=== PATIENT | female | born 1935 | race Caucasian/White ===

== ENCOUNTER 2016-10-15 12:42 | Emergency (ER) | payer MEDICARE, OTHER ==
[2016-10-15 12:47] VITALS: BMI 244.3
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
[2016-10-15 15:50] LABS: URINE APPEARANCE CLEAR; URINE BILIRUBIN NEGATIVE (NEGATIVE); URINE BLOOD NEGATIVE (NEGATIVE); URINE COLOR STRAW; URINE GLUCOSE (UA) NEGATIVE (NEGATIVE); URINE KETONE NEGATIVE (NEGATIVE); URINE LEUK ESTERASE NEGATIVE (NEGATIVE); URINE NITRITE NEGATIVE (NEGATIVE); URINE UROBILINOGEN NEGATIVE E.U./dl (0.2-1.0)
[2016-10-15 15:53] LABS: URINE PROTEIN 2+ (NEGATIVE)
[2016-10-15 16:36] LABS: URINE RBC <1 /hpf (0-3); URINE WBC <1 /hpf (3-5)
[2016-10-15 16:46] LABS: BASOPHIL 0.3 % (0-2.0); EOSINOPHIL 0.1 % (0-4.5); MCH 29.9 pg (25.7-33.7); MCHC 32.3 g/dl (32.0-36.0); MEAN CELL VOLUME 92.4 fl (80-96); MEAN PLT VOLUME 10.9 fl (7.5-11.1); NEUTROPHILS 90.2 % (42.8-82.8); PLATELET COUNT 163 K/MM3 (134-434); WHITE BLOOD COUNT 12.1 K/mm3 (4.0-10.0)
[2016-10-15 17:18] LABS: ALBUMIN 3.8 g/dl (3.4-5.0); ANION GAP 14 (8-16); BILIRUBIN,TOTAL 0.4 mg/dL (0.2-1.0); CALCIUM 8.8 mg/dL (8.5-10.1); CO2 23 mmol/L (21-32); CREATININE 0.9 mg/dL (0.55-1.02); GLUCOSE,RANDOM 183 mg/dL (74-106); SGOT/AST 18 U/L (15-37); SGPT/ALT 38 U/L (12-78); TOT PROT 7.7 g/dl (6.4-8.2)
[2016-10-15 17:20] LABS: ALK PHOS 83 U/L (45-117); TROPONIN I < 0.02 ng/ml (0.00-0.05)
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
[2016-10-15 19:23] VITALS: BP 163/74; PULSE 56; TEMP 98.2
--- NOTE | 2016-10-16 12:19 | EKG ---
Test Reason : Blood Pressure : / mmHG Vent. Rate : 065 BPM Atrial Rate : 065 BPM P-R Int : 144 ms QRS Dur : 094 ms QT Int : 434 ms P-R-T Axes : 037 -09 047 degrees QTc Int : 451 ms NORMAL SINUS RHYTHM WITH SINUS ARRHYTHMIA LEFT ATRIAL ENLARGEMENT INCOMPLETE RIGHT BUNDLE BRANCH BLOCK NONSPECIFIC ST ABNORMALITY ABNORMAL ECG WHEN COMPARED WITH ECG OF 08-NOV-2014 19:31, NO SIGNIFICANT CHANGE WAS FOUND Confirmed by SHAUN DEL CID MD ([id number]) on 10/16/2016 12:19:31 PM Referred By: Confirmed By:SHAUN DEL CID MD
--- NOTE | 2016-10-19 12:18 | EKG ---
Test Reason : Blood Pressure : / mmHG Vent. Rate : 065 BPM Atrial Rate : 065 BPM P-R Int : 144 ms QRS Dur : 092 ms QT Int : 436 ms P-R-T Axes : 038 -17 038 degrees QTc Int : 453 ms NORMAL SINUS RHYTHM POSSIBLE LEFT ATRIAL ENLARGEMENT INCOMPLETE RIGHT BUNDLE BRANCH BLOCK NONSPECIFIC ST ABNORMALITY ABNORMAL ECG WHEN COMPARED WITH ECG OF 08-NOV-2014 19:31, NO SIGNIFICANT CHANGE WAS FOUND Confirmed by MD KENNETH, TEVIN ([id number]) on 10/19/2016 12:17:55 PM Referred By: Confirmed By:TEVIN COOPER MD
== END 2016-10-15 18:35 | disposition home or self-care (01) ==
LOC: JERFT 12:42 → JER 12:42
DX: Z04.1 Encounter for examination and observation following transport accident (principal); V43.52XA Car driver injured in collision with other type car in traffic accident, initial encounter; Y93.89 Activity, other specified; Y92.410 Unspecified street and highway as the place of occurrence of the external cause; I10 Essential (primary) hypertension; J44.9 Chronic obstructive pulmonary disease, unspecified; J45.909 Unspecified asthma, uncomplicated; E78.00 Pure hypercholesterolemia, unspecified; Z87.891 Personal history of nicotine dependence
CPT/HCPCS: 36415; 70450-TC; 71020-TC; 80053; 81003; 81015; 82550; 84484; 85025; 93005; 93010; 99282-25

== ENCOUNTER 2016-11-27 14:18 | Inpatient (IN) | payer OTHER ==
--- NOTE | 2016-11-27 14:40 | PDOC ---
History of Present Illness - General History Source: Patient Exam Limitations: No Limitations - History of Present Illness Initial Comments: 11/27/16 14:52 The patient is an 81-year-old woman, accompanied by her daughter, with a significant past medical history of hypertension, hyperchoelsterolemia, mitral valve replacement, double bypass, asthma, chronic obstructive pulmonary disease and colonic polyps who was sent to the emergency department by her dentist for further evaluation of an elevated blood pressure. Upon ED arrival, the patient was noted to have a blood pressure of 205/74, bradycardic to 48 bpm, and an oxygen saturation of 94% on room air. As per patient, she reports she was not feeling like her usual self, last night, as she felt drowsy while watching television. She ultimately fell asleep and this morning, she felt somewhat of an unsteady gait, however she went to her routine checkup with her dentist. She reports she had to wait approximately 1 hour and 30 minutes, felt frustrated and her blood pressure was measured and she reports it was high. she reports compliance with all of her anti-hypertensive medications this morning. She currently denies chest pain, lightheadedness, dizziness, visual changes, neck pain,back pain, leg pain/swelling, abdominal pain, nausea, vomiting, diarrhea, cough, shortness of breath. Allergies: Penicillin Past Surgical History: Mitral valve replacement. Double bypass. Appendectomy. Right shoulder arthroscopic surgery. Social History: Former smoker. No EtOH and recreational drug use. Primary Care Physician: Dr. Carmine Soriano. (now retired; Dr. Dorota Bourne) <Judy William - Last Filed: 11/27/16 18:11> <Demetrio Mcclain - Last Filed: 11/27/16 18:40> - General Chief Complaint: Chest Pain Stated Complaint: CHEST PAIN Time Seen by Provider: 11/27/16 14:39 Past History <Judy William - Last Filed: 11/27/16 18:11> - Past Medical History Anemia: No Asthma: Yes Cancer: No Cardiac Disorders: No CVA: No COPD: Yes (COPD) CHF: No Dementia: No Diabetes: No GI Disorders: Yes (COLONIC POLYPS) Disorders: No HTN: Yes Hypercholesterolemia: Yes Liver Disease: No Seizures: No Thyroid Disease: No - Surgical History Abdominal Surgery: Yes Appendectomy: Yes Cardiac Surgery: Yes (August,) Cholecystectomy: No Lung Surgery: No Neurologic Surgery: No Orthopedic Surgery: Yes (RIGHT SHOULDER ARTHROSCOPIC SURGERY) - Psycho/Social/Smoking Cessation Hx Anxiety: No Suicidal Ideation: No Smoking History: Former smoker Have you smoked in the past 12 months: No Number of Cigarettes Smoked Daily: 0 If you are a former smoker, when did you quit?: 30 YEARS Hx Alcohol Use: No Drug/Substance Use Hx: No Substance Use Type: Alcohol Hx Substance Use Treatment: No <Demetrio Mcclain - Last Filed: 11/27/16 18:40> - Past Medical History Allergies/Adverse Reactions: Allergies Allergy/AdvReac Type Severity Reaction Status Date / Time Penicillins Allergy Mild Rash Verified 11/27/16 14:27 Home Medications: Ambulatory Orders Atorvastatin Ca [Lipitor] 20 mg PO DAILY 11/27/16 Furosemide 40 mg PO DAILY 11/27/16 Isosorbide Mononitrate [Isosorbide Mononitrate ER] 30 mg PO DAILY 11/27/16 Metoprolol Succinate [Toprol Xl] 100 mg PO DAILY 11/27/16 Montelukast Na [Singulair -] 10 mg PO HS 11/27/16 Nifedipine ER [Procardia Xl -] 30 mg PO DAILY 11/27/16 Olmesartan Medoxomil [Benicar (Nf)] 20 mg PO DAILY 11/27/16 Review of Systems - Review of Systems Able to Perform ROS?: Yes Comments:: 11/27/16 15:08 GENERAL/CONSTITUTIONAL: No fever or chills. No weakness. HEAD, EYES, EARS, NOSE AND THROAT: No change in vision. No ear pain or discharge. No sore throat. CARDIOVASCULAR: Yes: Elevated Blood Pressure. No chest pain or shortness of breath. RESPIRATORY: No cough, wheezing, or hemoptysis. GASTROINTESTINAL: No nausea, vomiting, diarrhea or constipation. GENITOURINARY: No dysuria, frequency, or change in urination. MUSCULOSKELETAL: No joint or muscle swelling or pain. No neck or back pain. SKIN: No rash NEUROLOGIC: Yes: Unsteady gait. No headache, vertigo, loss of consciousness, or change in strength/sensation. ENDOCRINE: No increased thirst. No abnormal weight change. HEMATOLOGIC/LYMPHATIC: No anemia, easy bleeding, or history of blood clots. ALLERGIC/IMMUNOLOGIC: No hives or skin allergie <Judy William - Last Filed: 11/27/16 18:11> *Physical Exam - Physical Exam Comments: 11/27/16 15:08 GENERAL: Awake, alert, and fully oriented, in no acute distress HEAD: No signs of trauma EYES: PERRLA, EOMI, sclera anicteric, conjunctiva clear ENT: Auricles normal inspection, hearing grossly normal, nares patent, oropharynx clear without exudates. Moist mucosa NECK: Normal ROM, supple, no lymphadenopathy, JVD, or masses LUNGS: Breath sounds equal, clear to auscultation bilaterally. No wheezes, and no crackles HEART: Regular rate and rhythm, normal S1 and S2, no murmurs, rubs or gallops ABDOMEN: Soft, nontender, normoactive bowel sounds. No guarding, no rebound. No masses EXTREMITIES: Normal range of motion, no edema. No clubbing or cyanosis. No cords, erythema, or tenderness NEUROLOGICAL: Cranial nerves II through XII grossly intact. Normal speech, normal gait. <Judy William - Last Filed: 11/27/16 18:11> Heart Score/ECG Review #1 11/27/16 14:34 Reviewed and interpreted by Dr. Demetrio Mcclain IMPRESSION: Sinus bradycardia with sinus arrhythmia. Possible left atrial enlargement. <WilliamJudy - Last Filed: 11/27/16 18:11> ED Treatment Course - LABORATORY CBC & Chemistry Diagram: 11/27/16 15:28 11/27/16 15:28 - RADIOLOGY Radiograph Interpretation: 11/27/16 16:41 EXAM: CT/HEAD CT WITHOUT CONTRAST Interpreted by Dr. Cesario Camacho IMPRESSION: Cranial CT without contrast Clinical information: hypertensive crisis No intracranial hemorrhage is seen. There has been no definite interval change in comparison to a previous CT study of 10/15/2016. Minimal to mild periventricular chronic microvascular changes are noted. There is no extra- axial fluid collection. Equivocal visualization of a 1.3 cm meningioma is noted along the left anterior cranial fossa floor ventrally adjacent to the midline ( on coronal imaging). This possible small meningioma cannot be definitely seen on the previous exam which may be due to current artifact versus partial abnormality. No mass effect or perilesional edema is seen. Mild to moderate ventricular dilatation is noted probably due to central atrophy. Status post left mastoidectomy. <Judy William - Last Filed: 11/27/16 18:11> - LABORATORY CBC & Chemistry Diagram: 11/27/16 15:28 11/27/16 15:28 <Demetrio Mcclain - Last Filed: 11/27/16 18:40> Medical Decision Making - Medical Decision Making 11/27/16 17:33 MicroBlogged Hospitalist. Immediate response. Case was discussed. Accepts case. <Judy William - Last Filed: 11/27/16 18:11> *DC/Admit/Observation/Transfer - Attestations Scribe Attestion: 11/27/16 15:08 Documentation prepared by Judy William, acting as medical transcriptionist for Demetrio Mcclain DO. <Judy William - Last Filed: 11/27/16 18:11> - Discharge Dispostion Admit: Yes - Attestations Physician Attestion: 11/27/16 14:40 I, Dr. Demetrio Mcclain, attest that this document has been prepared under my direction and personally reviewed by me in its entirety. I further attest, that it accurately reflects all work, treatment, procedures and medical decision -making performed by me. <Demetrio Mcclain - Last Filed: 11/27/16 18:40> Diagnosis at time of Disposition: Hypertensive crisis, Symptomatic sinus bradycardia, Cerebral meningioma - Discharge Dispostion Condition at time of disposition: Improved - Referrals Referrals: Carmine Soriano MD [Non Staff, Medical] -
[2016-11-27 14:55] VITALS: BMI 29.2
[2016-11-27] MEDS ORDERED: cloNIDine HCL 0.1 MG TABLET PO ONE ×2 (14:59→16:24)
[2016-11-27] MEDS ORDERED: cloNIDine HCL 0.1 MG TABLET ONE (15:13)
[2016-11-27 15:56] LABS: EOSINOPHIL 5.1 % (0-4.5); MCH 30.1 pg (25.7-33.7); MCHC 32.9 g/dl (32.0-36.0); MEAN CELL VOLUME 91.4 fl (80-96); MEAN PLT VOLUME 10.5 fl (7.5-11.1); NEUTROPHILS 63.6 % (42.8-82.8); PLATELET COUNT 166 K/MM3 (134-434); RDW 14.5 % (11.6-15.6); WHITE BLOOD COUNT 9.7 K/mm3 (4.0-10.0)
[2016-11-27 15:58] LABS: URINE APPEARANCE CLEAR; URINE BILIRUBIN NEGATIVE (NEGATIVE); URINE BLOOD NEGATIVE (NEGATIVE); URINE COLOR COLORLESS; URINE GLUCOSE (UA) NEGATIVE (NEGATIVE); URINE KETONE NEGATIVE (NEGATIVE); URINE LEUK ESTERASE NEGATIVE (NEGATIVE); URINE NITRITE NEGATIVE (NEGATIVE); URINE PROTEIN 1+ (NEGATIVE); URINE UROBILINOGEN NEGATIVE E.U./dl (0.2-1.0)
[2016-11-27 16:26] LABS: ANION GAP 8 (8-16); BILIRUBIN,TOTAL 0.5 mg/dL (0.2-1.0); CALCIUM 8.9 mg/dL (8.5-10.1); CO2 30 mmol/L (21-32); CREATININE 0.8 mg/dL (0.55-1.02); GLUCOSE,RANDOM 102 mg/dL (74-106); SGOT/AST 21 U/L (15-37); SGPT/ALT 34 U/L (12-78); TOT PROT 7.5 g/dl (6.4-8.2)
[2016-11-27 16:28] LABS: ALK PHOS 80 U/L (45-117); TROPONIN I < 0.02 ng/ml (0.00-0.05)
[2016-11-27 16:44] LABS: URINE BACTERIA RARE /hpf (NONE SEEN); URINE WBC <1 /hpf (3-5)
[2016-11-27 17:05] LABS: INR 1.15 (0.82-1.09); PROTHROMBIN TIME (PATIENT) 12.7 SEC (9.98-11.88)
--- NOTE | 2016-11-27 17:59 | HP ---
CHIEF COMPLAINT: hypertension and bradycardia PCP: Dr. krystin vargas HISTORY OF PRESENT ILLNESS: he patient is an 81-year-old woman, accompanied by her daughter, with a significant past medical history of hypertension, hyperchoelsterolemia, mitral valve replacement, double bypass, asthma, chronic obstructive pulmonary disease and colonic polyps who was sent to the emergency department by her dentist for further evaluation of an elevated blood pressure. Upon ED arrival, the patient was noted to have a blood pressure of 205/74, bradycardic to 48 bpm, and an oxygen saturation of 94% on room air. As per patient, she reports she was not feeling like her usual self, last night, as she felt drowsy while watching television. She ultimately fell asleep and this morning, she felt somewhat of an unsteady gait, however she went to her routine checkup with her dentist. She reports she had to wait approximately 1 hour and 30 minutes, felt frustrated and her blood pressure was measured and she reports it was high. she reports compliance with all of her anti-hypertensive medications this morning. She currently denies chest pain, lightheadedness, dizziness, visual changes, neck pain,back pain, leg pain/swelling, abdominal pain, nausea, vomiting, diarrhea, cough, shortness of breath. Allergies: Penicillin Past Surgical History: Mitral valve replacement. Double bypass. Appendectomy. Right shoulder arthroscopic surgery. Social History: Former smoker. No EtOH and recreational drug use. Primary Care Physician: Dr. Carmine Soriano. (now retired; Dr. Dorota Bourne) ER course was notable for: (1) head ct with finding of menigioma? (2)treated with antihypertensives but develops symptomatic bradycardia (3) Penicillins Allergy (Mild, Verified 11/27/16 14:27) Rash HOME MEDICATIONS: Home Medications Medication Instructions Recorded Atorvastatin Ca [Lipitor] 20 mg PO DAILY 11/27/16 Furosemide 40 mg PO DAILY 11/27/16 Isosorbide Mononitrate [Isosorbide 30 mg PO DAILY 11/27/16 Mononitrate ER] Metoprolol Succinate [Toprol Xl] 100 mg PO DAILY 11/27/16 Montelukast Na [Singulair -] 10 mg PO HS 11/27/16 Nifedipine ER [Procardia Xl -] 30 mg PO DAILY 11/27/16 Olmesartan Medoxomil [Benicar (Nf)] 20 mg PO DAILY 11/27/16 REVIEW OF SYSTEMS CONSTITUTIONAL: Absent: fever, chills, diaphoresis, +generalized weakness, malaise, loss of appetite, weight change HEENT: Absent: rhinorrhea, nasal congestion, throat pain, throat swelling, difficulty swallowing, mouth swelling, ear pain, eye pain, visual changes CARDIOVASCULAR: Absent: chest pain, syncope, palpitations, irregular heart rate, lightheadedness , peripheral edema RESPIRATORY: Absent: cough, shortness of breath, dyspnea with exertion, orthopnea, wheezing, stridor, hemoptysis GASTROINTESTINAL: Absent: abdominal pain, abdominal distension, nausea, vomiting, diarrhea, constipation, melena, hematochezia GENITOURINARY: Absent: dysuria, frequency, urgency, hesitancy, hematuria, flank pain, genital pain MUSCULOSKELETAL: Absent: myalgia, arthralgia, joint swelling, back pain, neck pain SKIN: Absent: rash, itching, pallor HEMATOLOGIC/IMMUNOLOGIC: Absent: easy bleeding, easy bruising, lymphadenopathy, frequent infections ENDOCRINE: Absent: unexplained weight gain, unexplained weight loss, heat intolerance, cold intolerance NEUROLOGIC: Absent: headache, focal weakness or paresthesias, dizziness, unsteady gait, seizure, mental status changes, bladder or bowel incontinence PSYCHIATRIC: Absent: anxiety, depression, suicidal or homicidal ideation, hallucinations. PHYSICAL EXAMINATION Vital Signs - 24 hr 11/27/16 11/27/16 14:46 16:44 Temperature 98.2 F 98.1 F Pulse Rate 48 L Pulse Rate [ 48 L Right Radial] Respiratory 24 22 Rate Blood Pressure 205/74 Blood Pressure 137/83 [Right Arm] O2 Sat by Pulse 94 L 95 Oximetry (%) GENERAL: Awake, alert, and fully oriented, in no acute distress. HEAD: Normal with no signs of trauma. EYES: Pupils equal, round and reactive to light, extraocular movements intact, sclera anicteric, conjunctiva clear. No lid lag. EARS, NOSE, THROAT: Ears normal, nares patent, oropharynx clear without exudates. Moist mucous membranes. NECK: Normal range of motion, supple without lymphadenopathy, JVD, or masses. LUNGS: Breath sounds equal, clear to auscultation bilaterally. No wheezes, and no crackles. No accessory muscle use. HEART: Regular rate and rhythm, normal S1 and S2 without murmur, rub or gallop. ABDOMEN: Soft, nontender, not distended, normoactive bowel sounds, no guarding, no rebound, no masses. No hepatomegaly or splenomegaly. MUSCULOSKELETAL: Normal range of motion at all joints. No bony deformities or tenderness. No CVA tenderness. UPPER EXTREMITIES: 2+ pulses, warm, well-perfused. No cyanosis. No clubbing. No peripheral edema. LOWER EXTREMITIES: 2+ pulses, warm, well-perfused. No calf tenderness. No peripheral edema. NEUROLOGICAL: Cranial nerves II-XII intact. Normal speech. Normal gait. PSYCHIATRIC: Cooperative. Good eye contact. Appropriate mood and affect. SKIN: Warm, dry, normal turgor, no rashes or lesions noted, normal capillary refill. Laboratory Results - last 24 hr 11/27/16 11/27/16 11/27/16 15:28 15:28 15:28 WBC 9.7 RBC 4.87 Hgb 14.7 Hct 44.5 MCV 91.4 MCHC 32.9 RDW 14.5 Plt Count 166 MPV 10.5 Neutrophils % 63.6 D Lymphocytes % 20.0 D Monocytes % 10.3 H D Eosinophils % 5.1 H D Basophils % 1.0 D INR 1.15 H Sodium Potassium Chloride Carbon Dioxide Anion Gap BUN Creatinine Creat Clearance w eGFR Random Glucose Calcium Total Bilirubin AST ALT Alkaline Phosphatase Creatine Kinase Troponin I Total Protein Albumin Urine Color Colorless Urine Appearance Clear Urine pH 7.0 Urine Protein 1+ H Urine Glucose (UA) Negative Urine Ketones Negative Urine Blood Negative Urine Nitrite Negative Urine Bilirubin Negative Urine Urobilinogen Negative Ur Leukocyte Esterase Negative 11/27/16 15:28 WBC RBC Hgb Hct MCV MCHC RDW Plt Count MPV Neutrophils % Lymphocytes % Monocytes % Eosinophils % Basophils % INR Sodium 143 Potassium 4.4 Chloride 105 Carbon Dioxide 30 D Anion Gap 8 BUN 17 Creatinine 0.8 Creat Clearance w eGFR > 60 Random Glucose 102 D Calcium 8.9 Total Bilirubin 0.5 D AST 21 ALT 34 Alkaline Phosphatase 80 Creatine Kinase 105 Troponin I < 0.02 Total Protein 7.5 Albumin 4.0 Urine Color Urine Appearance Urine pH Urine Protein Urine Glucose (UA) Urine Ketones Urine Blood Urine Nitrite Urine Bilirubin Urine Urobilinogen Ur Leukocyte Esterase ASSESSMENT/PLAN: This 81 yr old female found by her dentist with a elevated blood pressure and symptomatic bradycardia was sent to ER and now admitted under telemetry. She has a finding of a menigioma on head CT -consults called for cardiology neurology neurosurgery monitor neuro and cardiac status. Problem List - Problem (1) Coronary artery disease Code(s): I25.10 - ATHSCL HEART DISEASE OF [place] CORONARY ARTERY W/O ANG PCTRS Qualifiers: Coronary Disease-Associated Artery/Lesion type: bypass graft, autologous artery Associated angina: without angina Qualified Code(s): I25.810 - Atherosclerosis of coronary artery bypass graft(s) without angina pectoris (2) Hyperlipidemia Assessment/Plan: -follow up lipid profile -continue statin Code(s): E78.5 - HYPERLIPIDEMIA, UNSPECIFIED Qualifiers: Hyperlipidemia type: pure hypercholesterolemia Qualified Code(s): E78.00 - Pure hypercholesterolemia, unspecified; E78.0 - Pure hypercholesterolemia (3) Hypertension Assessment/Plan: -consult called for cardiology -continue mediations for hypertension -monitor cardiac EKG -monitor v/s -bedrest and getting up slowly to monitor dizzy -strict i and o -hold lasix for now until seen by tete and neurology for menigioma? labs, sodium returns Code(s): I10 - ESSENTIAL (PRIMARY) HYPERTENSION Qualifiers: Hypertension type: essential hypertension Qualified Code(s): I10 - Essential (primary) hypertension (4) Junctional bradycardia Assessment/Plan: -? to hypertensive meds -get up slowly -atropine available -cardiololgy consult placed Code(s): R00.1 - BRADYCARDIA, UNSPECIFIED (5) S/P CABG (coronary artery bypass graft) Code(s): Z95.1 - PRESENCE OF AORTOCORONARY BYPASS GRAFT (6) S/P aortic valve and mitral valve replacement Code(s): Z95.2 - PRESENCE OF PROSTHETIC HEART VALVE (7) Meningioma Assessment/Plan: -consult placed to neurology and tete and will follow. -holding lasix until sodium levels -monitor neuro status Q4 for any change notifipalmira BURNETTE for head ct repeat. Code(s): D32.9 - BENIGN NEOPLASM OF MENINGES, UNSPECIFIED Visit type - Emergency Visit Emergency Visit: Yes Care time: The patient presented to the Emergency Department on the above date and was hospitalized for further evaluation of their emergent condition. - New Patient This patient is new to me today: Yes Date on this admission: 11/27/16 - Critical Care Critical Care patient: No
[2016-11-27] MEDS ORDERED: SODIUM CHLORIDE 1,000 ML IV SCH (18:00)
[2016-11-27] MEDS: ATORVASTATIN CA 20 MG TABLET (FP) PO SCH (22:33)
[2016-11-27] MEDS: INSULIN SLIDING SCALE (NOVOLOG) 1 VIAL SQ SCH (22:33)
[2016-11-27] MEDS: MONTELUKAST NA 10 MG TABLET PO SCH (22:33)
[2016-11-28] MEDS ORDERED: cloNIDine HCL 0.1 MG TABLET PO ONE (01:54)
[2016-11-28] MEDS: INSULIN SLIDING SCALE (NOVOLOG) 1 VIAL SQ SCH (06:03)
[2016-11-28 07:22] LABS: BASOPHIL 1.1 % (0-2.0); EOSINOPHIL 6.5 % (0-4.5); MCH 30.7 pg (25.7-33.7); MCHC 33.7 g/dl (32.0-36.0); MEAN CELL VOLUME 91.2 fl (80-96); MEAN PLT VOLUME 10.5 fl (7.5-11.1); NEUTROPHILS 49.4 % (42.8-82.8); PLATELET COUNT 134 K/MM3 (134-434); RDW 14.3 % (11.6-15.6); WHITE BLOOD COUNT 7.5 K/mm3 (4.0-10.0)
[2016-11-28 07:33] LABS: INR 1.17 (0.82-1.09); PROTHROMBIN TIME (PATIENT) 12.9 SEC (9.98-11.88)
--- NOTE | 2016-11-28 08:25 | PN ---
Physical Exam: SUBJECTIVE: Patient seen and examined by me at bedside. Patient continues to have bradycardia overnight but reports no symptoms. She denies any headaches, dizziness, acute vision changes, shortness of breath, chest pain, palpitations, abdominal pain. OBJECTIVE: Vital Signs Period Temp Pulse Resp BP Sys/Ziegler Pulse Ox Last 24 Hr 97.7 F-98.3 F 45-51 18-20 167-175/71-85 95-100 GENERAL: The patient is awake, alert, and fully oriented, in no acute distress. ENT: Moist mucous membranes. NECK: (+) JVD LUNGS: Breath sounds equal, clear to auscultation bilaterally, no wheezes, no crackles, no accessory muscle use. HEART: Bradycardia with regular rhythm, normal S1 and S2 without murmur, rub or gallop. ABDOMEN: Soft, nontender, nondistended, normoactive bowel sounds, no guarding. EXTREMITIES: No peripheral edema. NEUROLOGICAL: No focal deficits. Motor strength 5/5 throughout, sensory intact. Normal speech Laboratory Results - last 24 hr 11/27/16 11/28/16 11/28/16 22:32 05:37 05:56 INR 1.17 H PTT (Actin FS) 29.0 POC Glucometer 113 114 Active Medications Generic Name Dose Route Start Last Admin Trade Name Freq PRN Reason Stop Dose Admin Atorvastatin Calcium 20 mg 11/27/16 22:00 11/27/16 22:33 Lipitor - PO 20 mg HS CHYNA Administration Pantoprazole Sodium 100 mls @ 100 mls/hr 11/28/16 10:00 Protonix 40mg Ivpb (Pre-Docked) IVPB DAILY CHYNA Sodium Chloride 1,000 mls @ 100 mls/hr 11/27/16 18:00 11/27/16 22:33 Normal Saline - IV 100 mls/hr ASDIR CHYNA Administration Insulin Aspart 1 vial 11/27/16 22:00 11/28/16 06:03 Novolog Vial Sliding Scale - SQ Not Given ACHS CHYNA Protocol Isosorbide Mononitrate 30 mg 11/28/16 10:00 Imdur - PO DAILY CHYNA Metoprolol Succinate 100 mg 11/28/16 10:00 Toprol Xl - PO DAILY CHYNA Montelukast Sodium 10 mg 11/27/16 22:00 11/27/16 22:33 Singulair - PO 10 mg HS CHYNA Administration Nifedipine 30 mg 11/28/16 10:00 Procardia Xl - PO DAILY CHYNA Valsartan 160 mg 11/28/16 10:00 Diovan - PO DAILY CHYNA Head CT (11/27/16): No intracranial hemorrhage is seen. There has been no definite interval change in comparison to a previous CT study of 10/15/2016. Minimal to mild periventricular chronic microvascular changes are noted. There is no extra-axial fluid collection. Equivocal visualization of a 1.3 cm meningioma is noted along the left anterior cranial fossa floor ventrally adjacent to the midline (on coronal imaging). This possible small meningioma cannot be definitely seen on the previous exam which may be due to current artifact versus partial abnormality. No mass effect or perilesional edema is seen. Mild to moderate ventricular dilatation is noted probably due to central atrophy. Status post left mastoidectomy. Impression: No CT evidence of acute intracranial pathology. Equivocal 1.3 cm left frontal meningioma. Additional evaluation utilizing contrast enhanced CT or MRI may be performed. Alternatively correlate with 3 month follow-up CT or MRI. ASSESSMENT/PLAN: Patient is an 81 year old female with a PMHx of CAD, HTN, HLD, Mitral Valve replacement, Double Bypass, Asthma/COPD who was sent by her dentist for elevated blood pressure. Patient was found to have BP of 205/[address] revealed Meningioma. Patient to Telemetry for further monitoring and management. Hypertensive Urgency -Clonidine 0.1 x3 given -Continue with Valsartan 160mg daily -Continue Imdur 30mg daily -Resume Lasix 40mg daily -Discontinue Metoprolol and Nifedipine as patient continues to be bradycardic -CT negative for intracranial Hemorrhage -Continue to monitor BP. Should not lower BP drastically as patient may have hypoperfusion causing neurological symptoms. Bradycardia -Likely secondary to Blood pressure medications -Continues to have heart rate between 28-45 BPM -Discontinued Metoprolol and Nifedipine -Cardiology consult placed -ECHO ordered -TSH ordered -Continue telemetry monitoring Incidental Meningioma Finding -CT revaled 1.3 cm left frontal meningioma. -Does not need current surgical intervention as patient remains asymptomatic -Neurology consult placed -Will need to have a [address] and MRI as outpatient Pre-Diabetic -A1C 6.5% -Nutrition consult -Switched to Diabetic and sodium controlled diet HLD -Continue Lipitor 20mg daily -LDL 106 Asthma/COPD- Controlled -In no acute exacerbation -Continue Singulair 10mg daily F/E/N -On no fluids -Electrolytes wnl -Sodium controlled diet Prophylaxis -SCD's for DVT -No GI prophylaxis required Disposition -Awaiting cardiology and Neurology. Waiting for ECHO Visit type - Emergency Visit Emergency Visit: Yes ED Registration Date: 11/27/16 Care time: The patient presented to the Emergency Department on the above date and was hospitalized for further evaluation of their emergent condition. - New Patient This patient is new to me today: Yes Date on this admission: 11/29/16 - Critical Care Critical Care patient: No
[2016-11-28 09:02] LABS: LDL CHOLESTEROL (ONLY SJRH) 106 mg/dL (5-100)
[2016-11-28 09:03] LABS: ALBUMIN 3.2 g/dl (3.4-5.0); ALK PHOS 60 U/L (45-117); ANION GAP 8 (8-16); BILIRUBIN,TOTAL 0.6 mg/dL (0.2-1.0); CALCIUM 8.5 mg/dL (8.5-10.1); CHOLESTEROL 163 mg/dL (50-200); CO2 29 mmol/L (21-32); CREATININE 0.8 mg/dL (0.55-1.02); GLUCOSE,RANDOM 106 mg/dL (74-106); MAGNESIUM 2.5 mg/dL (1.8-2.4); PHOSPHOROUS 3.8 mg/dL (2.5-4.9); SGOT/AST 15 U/L (15-37); SGPT/ALT 29 U/L (12-78); TOT PROT 6.1 g/dl (6.4-8.2)
--- NOTE | 2016-11-28 09:17 | CON.NEURO ---
Consult - History of Present Illness History of Present Illness: 81-year-old woman, accompanied by her daughter, with a significant past medical history of hypertension, hyperchoelsterolemia, mitral valve replacement, double bypass, asthma, chronic obstructive pulmonary disease and colonic polyps who was sent to the emergency department by her dentist for further evaluation of an elevated blood pressure. Upon ED arrival, the patient was noted to have a blood pressure of 205/74, bradycardic to 48 bpm, denies SOLORIO now. denies focal weakness, numbness. cardiac [place] in Progress. CT head reviewed. 11/27/16 Status: [place] [id number] Unit Number: [id number] EXAM#: TYPE/EXAM: RESULT: [id number] CT/HEAD CT WITHOUT CONTRAST Cranial CT without contrast Clinical information: hypertensive crisis No intracranial hemorrhage is seen. There has been no definite interval change in comparison to a previous CT study of 10/15/2016. Minimal to mild periventricular chronic microvascular changes are noted. There is no extra- axial fluid collection. Equivocal visualization of a 1.3 cm meningioma is noted along the left anterior cranial fossa floor ventrally adjacent to the midline ( on coronal imaging). This possible small meningioma cannot be definitely seen on the previous exam which may be due to current artifact versus partial abnormality. No mass effect or perilesional edema is seen. Mild to moderate ventricular dilatation is noted probably due to central atrophy. Status post left mastoidectomy. Impression: No CT evidence of acute intracranial pathology. Equivocal 1.3 cm left frontal meningioma. Additional evaluation utilizing contrast enhanced CT or MRI may be performed. Alternatively correlate with 3 month follow-up CT or MRI. - History Source History Provided By: Patient, Medical Record - Past Medical History Cardio/Vascular: Yes: Aortic Insufficiency, Aortic Stenosis, HTN, Hyperlipdemia , Mitral Insufficiency, Murmur Pulmonary: Yes: Asthma ...: No Infectious Disease: Yes: Other (History of Lyme disease) - Past Surgical History Past Surgical History: Yes: Appendectomy, - Alcohol/Substance Use Hx Alcohol Use: No History of Substance Use: reports: None - Smoking History Smoking history: Former smoker Have you smoked in the past 12 months: No Aproximately how many cigarettes per day: 0 If you are a former smoker, when did you quit?: 30 YEARS - Social History ADL: Independent History of Recent Travel: No Home Medications - Allergies Allergies/Adverse Reactions: Allergies Allergy/AdvReac Type Severity Reaction Status Date / Time Penicillins Allergy Mild Rash Verified 11/27/16 14:27 - Home Medications Home Medications: Ambulatory Orders Atorvastatin Ca [Lipitor] 20 mg PO DAILY 11/27/16 Furosemide 40 mg PO DAILY 11/27/16 Isosorbide Mononitrate [Isosorbide Mononitrate ER] 30 mg PO DAILY 11/27/16 Metoprolol Succinate [Toprol Xl] 100 mg PO DAILY 11/27/16 Montelukast Na [Singulair -] 10 mg PO HS 11/27/16 Nifedipine ER [Procardia Xl -] 30 mg PO DAILY 11/27/16 Olmesartan Medoxomil [Benicar (Nf)] 20 mg PO DAILY 11/27/16 Family Disease History - Family Disease History Family Disease History: Heart Disease: Sister Physical Exam-Neuro Vital Signs: Vital Signs Temperature 98.3 F 11/28/16 06:00 Pulse Rate 45 L 11/28/16 06:00 Respiratory Rate 19 11/28/16 06:00 Blood Pressure 170/85 11/28/16 06:00 O2 Sat by Pulse Oximetry (%) 100 11/28/16 06:00 Constitutional: Yes: Well Nourished, No Distress Neck: Yes: Supple Labs: CBC, BMP 11/28/16 05:37 11/28/16 05:37 INR, PTT INR 1.17 (0.82-1.09) H 11/28/16 05:37 - Neuro Exam Level Of Consciousness: Yes: Alert (awake and conversive, EOMI, VFF, no facial, motor 5/5, mild tremor, no cogwheeling, no drift, no ataxia, walking steady ) NIH Stroke Scale - Total Score NIH Stroke Scale Score: 0 Imaging - Results Cat Scan: Report Reviewed, Image Reviewed Problem List - Problems (1) Cerebral meningioma Code(s): D32.0 - BENIGN NEOPLASM OF CEREBRAL MENINGES (2) Hypertensive crisis Code(s): I16.9 - HYPERTENSIVE CRISIS, UNSPECIFIED (3) S/P aortic valve replacement with bioprosthetic valve Code(s): Z95.3 - PRESENCE OF XENOGENIC HEART VALVE (4) Symptomatic sinus bradycardia Code(s): R00.1 - BRADYCARDIA, UNSPECIFIED Assessment/Plan 81-year-old woman, accompanied by her daughter, with a significant past medical history of hypertension, hyperchoelsterolemia, mitral valve replacement, double bypass, asthma, chronic obstructive pulmonary disease and colonic polyps who was sent to the emergency department by her dentist for further evaluation of an elevated blood pressure. denies SOLORIO now. now denies focal weakness, numbness. nofocal exam CT head reviewed. ? hypertensive neuro changes, now at baseline, menigioma incidental and asymtomatic neuro sign off Dr Ochoa
[2016-11-28] MEDS ORDERED: PATIENT'S OWN MEDICATION (NON-FORMULARY) (Olmesartan Medoxomil 20 MG) PO SCH (10:00)
[2016-11-28] MEDS ORDERED: NIFEdipine E.R. 30 MG TABLET (FP) PO SCH (10:00)
[2016-11-28] MEDS ORDERED: METOPROLOL SUCCINATE 100 MG TAB.SR.24H (FP) PO SCH (10:00)
[2016-11-28] MEDS ORDERED: PANTOPRAZOLE SODIUM 100 ML IVPB SCH (10:00)
--- NOTE | 2016-11-28 11:11 | EKG ---
Test Reason : Blood Pressure : / mmHG Vent. Rate : 048 BPM Atrial Rate : 048 BPM P-R Int : 152 ms QRS Dur : 090 ms QT Int : 518 ms P-R-T Axes : 032 -24 029 degrees QTc Int : 462 ms SINUS BRADYCARDIA WITH SINUS ARRHYTHMIA POSSIBLE LEFT ATRIAL ENLARGEMENT POSSIBLE ANTERIOR INFARCT , AGE UNDETERMINED ABNORMAL ECG WHEN COMPARED WITH ECG OF 15-OCT-2016 16:16, NO SIGNIFICANT CHANGE WAS FOUND Confirmed by COURTNEY BURNETTE, MARLENY ([id number]) on 11/28/2016 11:11:31 AM Referred By: Confirmed By:MARLENY VALDEZ MD
--- NOTE | 2016-11-28 12:15 | PN ---
Teaching Attending Note Name of Resident: Geri Stanley ATTENDING PHYSICIAN STATEMENT I saw and evaluated the patient. I reviewed the resident's note and discussed the case with the resident. I agree with the resident's findings and plan as documented. SUBJECTIVE:states SOLORIO has resolved. has been having intermittently for the past few months. sometimes assoc with CP. BP has been hard to control for the past year. last medication adjustment was done in July. At home she consistently gets 160-170's. does not check her BP when shes having a SOLORIO. denies CP, SOB, blurred vision, weakness, tinnitus, slurred speech. did take AM medications yesterday OBJECTIVE: Last Vital Signs Temp Pulse Resp BP Pulse Ox 98 F 50 L 20 150/66 100 11/28/16 10:11/28/16 10:04 11/28/16 10:11/28/16 10:11/28/16 06:00 General NAD CV S1 S2 bradycardic no murmur Lungs CTA B/L No wheezing/rales/rhonchi Neuro CN II-XII grossly intact, strength and sensation equal in all 4 extremities, gait testing deferred ASSESSMENT AND PLAN: 81yo F with PMH CAD s/p CABG, HTN. MVP, and dyslipidemia sent to the ER by her PMD for BP 205/74 1. HTN emergency- no events on tapper hand. improved with re-starting home medications. however now is bradycardic. improved with exertion. check TSH will hold toprol and nifedipine at this time and wait for improvement in HR. echo pending. cardio on board 2. Menigioma- incidental finding on CT scan. 1.3cm. asymptomatic. (however does have SOLORIO but likely due to uncontrolled HTN) neuro consulted. will likely require MRI testing in 3 months 3. New onset pre-diabetic- A1c 6.5, diabetic teaching. diabetic diet. will need repeat testing in 3 months. 4. dyslipidemia- statin 5. DVT ppx- EAM
[2016-11-28] MEDS: METOPROLOL SUCCINATE 50 MG TAB.SR.24H (FP) PO SCH (12:17)
[2016-11-28] MEDS: NIFEdipine E.R 60 MG TABLET (UD) PO SCH (12:17)
[2016-11-28] MEDS: ISOSORBIDE MONONITRATE 30 MG TAB.SR.24H (FP) PO SCH (12:18)
[2016-11-28] MEDS: VALSARTAN 160 MG TABLET (UD) PO SCH (12:18)
[2016-11-28 12:29] LABS: THYROID STIMULATING HORMONE 1.66 uIU/ml (0.358-3.74)
--- NOTE | 2016-11-28 12:45 | CON.CARD ---
Consult Consult Specialty:: Cardiology Referred by:: Hospitalist Medicine Reason for Consultation:: Hypertensive urgency - History of Present Illness Chief Complaint: Feeling weak History of Present Illness: Patient is a 79 yo F with a past medical history of Asthma/COPD, HTN, HLD, h/o aortic stenosis and mitral valve insufficiency s/p bioprosthetic aortic valve replacement in August 2014, CAD s/p 2 vessel bypass, diastolic dysfunction, Lyme disease, colonic polyps referred to ED for elevated BP 205/74, HR 48 bpm with lethargy, unsteady gait, denies chest pain, dyspnea, near or true syncope, palpitations, orthopnea, PND or LE edema. She reports episodic dietary indiscretion and use of Alleve. PMH: HTN, HLD, Valve replacement, Lyme dz 20 years ago PSH: Valve replavement 2015, Right shoulder surgery, appendectomy, ear surgery x 2 Social: (+) social alcohol use, denies tobacco use (quit 40 years ago), or recreational drug use. ALL: Penicilling --> diffuse urticarial rash and feeling like her throat was closing PCP: Dorota Gary Cards: Valdivia - History Source History Provided By: Patient Limitations to Obtaining History: No Limitations - Past Medical History Cardio/Vascular: Yes: Aortic Insufficiency, Aortic Stenosis, HTN, Hyperlipdemia , Mitral Insufficiency, Murmur Pulmonary: Yes: Asthma ...: No Infectious Disease: Yes: Other (History of Lyme disease) - Past Surgical History Past Surgical History: Yes: Appendectomy, CABG, , Valve Replacement - Alcohol/Substance Use Hx Alcohol Use: No History of Substance Use: reports: None - Smoking History Smoking history: Former smoker Have you smoked in the past 12 months: No Aproximately how many cigarettes per day: 0 If you are a former smoker, when did you quit?: 30 YEARS - Social History ADL: Independent History of Recent Travel: No Home Medications - Allergies Allergies/Adverse Reactions: Allergies Allergy/AdvReac Type Severity Reaction Status Date / Time Penicillins Allergy Mild Rash Verified 11/27/16 14:27 - Home Medications Home Medications: Ambulatory Orders Atorvastatin Ca [Lipitor] 20 mg PO DAILY 11/27/16 Furosemide 40 mg PO DAILY 11/27/16 Isosorbide Mononitrate [Isosorbide Mononitrate ER] 30 mg PO DAILY 11/27/16 Metoprolol Succinate [Toprol Xl] 100 mg PO DAILY 11/27/16 Montelukast Na [Singulair -] 10 mg PO HS 11/27/16 Nifedipine ER [Procardia Xl -] 30 mg PO DAILY 11/27/16 Olmesartan Medoxomil [Benicar (Nf)] 20 mg PO DAILY 11/27/16 Family Disease History - Family Disease History Family Disease History: Heart Disease: Sister Review of Systems - Review of Systems Constitutional: reports: Lethargy, Weakness Vital Signs: Vital Signs Temperature 98 F 11/28/16 10:04 Pulse Rate 50 L 11/28/16 10:04 Respiratory Rate 20 11/28/16 10:04 Blood Pressure 150/66 11/28/16 10:04 O2 Sat by Pulse Oximetry (%) 100 11/28/16 06:00 Constitutional: Yes: No Distress, Calm Neck: Yes: Supple Respiratory: Yes: Regular, CTA Bilaterally Gastrointestinal: Yes: Normal Bowel Sounds, Soft Cardiovascular: Yes: Regular Rate and Rhythm JVD: No Carotid Bruit: No Heart Sounds: Yes: S1, S2 Murmur: Yes: Systolic Murmur, Grade 1 Edema: No - Other Data Labs, Other Data: CBC, BMP 11/28/16 05:37 11/28/16 05:37 INR, PTT INR 1.17 (0.82-1.09) H 11/28/16 05:37 Troponin, BNP 11/28/16 05:37 B-Natriuretic Peptide 380.32 Troponin, BNP 11/28/16 05:37 B-Natriuretic Peptide 380.32 SB @ 48 LAE Prior Cardiac Procedures: CABG Ejection Fraction %: LVEF > or = 40 % Problem List - Problems (1) Cerebral meningioma Code(s): D32.0 - BENIGN NEOPLASM OF CEREBRAL MENINGES (2) Hypertensive crisis Code(s): I16.9 - HYPERTENSIVE CRISIS, UNSPECIFIED (3) Symptomatic sinus bradycardia Code(s): R00.1 - BRADYCARDIA, UNSPECIFIED (4) Aortic stenosis Code(s): I35.0 - NONRHEUMATIC AORTIC (VALVE) STENOSIS Qualifiers: Cardiac valve disease etiology: nonrheumatic Qualified Code(s): I35.0 - Nonrheumatic aortic (valve) stenosis (5) Asthma Code(s): J45.909 - UNSPECIFIED ASTHMA, UNCOMPLICATED Qualifiers: Asthma severity: moderate persistent Asthma complication type: uncomplicated Qualified Code(s): J45.40 - Moderate persistent asthma, uncomplicated (6) Coronary artery disease Code(s): I25.10 - ATHSCL HEART DISEASE OF [place] CORONARY ARTERY W/O ANG PCTRS Qualifiers: Coronary Disease-Associated Artery/Lesion type: bypass graft, autologous artery Associated angina: without angina Qualified Code(s): I25.810 - Atherosclerosis of coronary artery bypass graft(s) without angina pectoris (7) Hyperlipidemia Code(s): E78.5 - HYPERLIPIDEMIA, UNSPECIFIED Qualifiers: Hyperlipidemia type: pure hypercholesterolemia Qualified Code(s): E78.00 - Pure hypercholesterolemia, unspecified; E78.0 - Pure hypercholesterolemia (8) Hypertension Code(s): I10 - ESSENTIAL (PRIMARY) HYPERTENSION Qualifiers: Hypertension type: essential hypertension Qualified Code(s): I10 - Essential (primary) hypertension (9) S/P CABG (coronary artery bypass graft) Code(s): Z95.1 - PRESENCE OF AORTOCORONARY BYPASS GRAFT (10) S/P aortic valve replacement with bioprosthetic valve Code(s): Z95.3 - PRESENCE OF XENOGENIC HEART VALVE Assessment/Plan 09/17/2014 Echocradiogram revealed LVH with normal LV systolic function, mild to moderate MR, moderate to severe with AV area of 0.8 cm2 11/28/2016 Echo: Normal biventricular size and fxn, mod LAE, mild MR, TR, bioAVR , tr AR 1. HTN urgency in context of diet indiscretion and NSAID use 2. CAD s/p CABG, angina pectoris 2014 3. s/p bioprosthetic aortic valve replacement 4. Hyperlipidemia 5. Asthma/COPD PLAN: 1. Resume but decrease Toprol XL 50 qd, continue ASA 81 qd, Lipitor 20 qd, change Lasix 40 qd to Aldactone 25 qd, Imdur 30 qd, increase Procardia XL 60 qd , Benicar 20 qd with uptitration as tolerated 2. Avoidance of NSAIDs, emphasized importance of compliance 3. Neuro input pending 4. Thank you for consultative opportunity
[2016-11-28] MEDS: SPIRONOLACTONE 25 MG TABLET (FP) PO SCH (18:41)
[2016-11-28] MEDS: ATORVASTATIN CA 20 MG TABLET (FP) PO SCH (21:54)
[2016-11-28] MEDS: MONTELUKAST NA 10 MG TABLET PO SCH (21:54)
[2016-11-29] MEDS ORDERED: FUROSEMIDE 40 MG TABLET (FP) PO SCH (10:00)
--- NOTE | 2016-11-29 10:24 | PN ---
Progress Note (short form) - Note Progress Note: S: 81 year old female, with history of aortic valvular disease, critical aortic stenosis, s/p bioprostheric aortic valve replacement, coronary artery disease s/ p CABG, history of bronchial asthma, COPD, history of lyme disease, hypertension with recent exacerbation of systolic blood pressure. Patient is complaining of cough with yellow expectorations and recently complained of low grade fever. No history of chills, night sweats but complained of easy fatigability. Patient was noted to have periods of junctional escape rhythm alternating with sinus bradycardia, which is currently asymptomatic. No history of chest pain or discomfort, mild dyspnea reported. Patient complaining of generalized headache and known to have a maningeoma. Active Medications Generic Name Dose Route Start Last Admin Trade Name Freq PRN Reason Stop Dose Admin Atorvastatin Calcium 20 mg 11/27/16 22:00 11/28/16 21:54 Lipitor - PO 20 mg HS CHYNA Administration Isosorbide Mononitrate 30 mg 11/28/16 10:00 11/28/16 12:18 Imdur - PO 30 mg DAILY CHYNA Administration Metoprolol Succinate 50 mg 11/28/16 12:00 11/28/16 12:17 Toprol Xl - PO 50 mg DAILY CHYNA Administration Montelukast Sodium 10 mg 11/27/16 22:00 11/28/16 21:54 Singulair - PO 10 mg HS CHYNA Administration Nifedipine 60 mg 11/28/16 12:00 11/28/16 12:17 Procardia Xl - PO 60 mg DAILY CHYNA Administration Spironolactone 25 mg 11/28/16 13:15 11/28/16 18:41 Aldactone - PO Not Given DAILY CHYNA Valsartan 160 mg 11/28/16 10:00 11/28/16 12:18 Diovan - PO 160 mg DAILY CHYNA Administration O: 81 year old male/female was in no acute distress, no pallor, cyanosis, clubbing, or jaundice. Last Vital Signs Temp Pulse Resp BP Pulse Ox 98.1 F 34 L 20 150/60 98 11/29/16 05:53 11/29/16 05:53 11/29/16 05:53 11/29/16 05:53 11/28/16 21:00 Neck: Supple, no JVD, negative HJR, carotids were equal and upstrokes were normal, no thyromegaly appreciated. Heart: PMI was in the 5th intercostal space, no heaves or thrills, S1 and S2 were normal. No murmurs or gallops were appreciated. Lungs: Fine left basilar crepitations. Abdomen: Soft, nontender, no hepatosplenomegaly appreciated, and no palpable masses were felt. Extremities: No calf tenderness or dependent edema. Pulses are normal. CBC, BMP 11/28/16 05:37 11/28/16 05:37 Laboratory Results - last 24 hr 11/28/16 11/28/16 11/28/16 05:30 05:30 05:37 Sodium 146 H Potassium 4.3 Chloride 109 H Carbon Dioxide 29 Anion Gap 8 BUN 19 H Creatinine 0.8 Creat Clearance w eGFR > 60 Random Glucose 106 Hemoglobin A1c % 6.5 H D Calcium 8.5 Phosphorus 3.8 Magnesium 2.5 H Total Bilirubin 0.6 AST 15 D ALT 29 Alkaline Phosphatase 60 D B-Natriuretic Peptide 380.32 Total Protein 6.1 L Albumin 3.2 L Triglycerides 125 Cholesterol 163 Total LDL Cholesterol 106 H HDL Cholesterol 48 TSH Cancelled 1.66 D Impression: (1) Hypertensive crisis Code(s): I16.9 - HYPERTENSIVE CRISIS, UNSPECIFIED (2) Cerebral meningioma Code(s): D32.0 - BENIGN NEOPLASM OF CEREBRAL MENINGES (3) Sinus bradycardia, alternating with junctional escape rhythm, etiology; a. Secondary to beta alexey. b. Sick sinus syndrome. Code(s): R00.1 - BRADYCARDIA, UNSPECIFIED (4) Critical aortic stenosis S/P aortic valve replacement with bioprosthetic valve Code(s): I35.0 - NONRHEUMATIC AORTIC (VALVE) STENOSIS Qualifiers: Cardiac valve disease etiology: nonrheumatic Qualified Code(s): I35.0 - Nonrheumatic aortic (valve) stenosis (5) Bronchial Asthma, asthmatic bronchitis needs exclusion Code(s): J45.909 - UNSPECIFIED ASTHMA, UNCOMPLICATED Qualifiers: Asthma severity: moderate persistent Asthma complication type: uncomplicated Qualified Code(s): J45.40 - Moderate persistent asthma, uncomplicated (6) Coronary artery disease S/P CABG (coronary artery bypass graft) Code(s): I25.10 - ATHSCL HEART DISEASE OF [place] CORONARY ARTERY W/O ANG PCTRS Qualifiers: Coronary Disease-Associated Artery/Lesion type: bypass graft, autologous artery Associated angina: without angina Qualified Code(s): I25.810 - Atherosclerosis of coronary artery bypass graft(s) without angina pectoris (7) Hyperlipidemia Code(s): E78.5 - HYPERLIPIDEMIA, UNSPECIFIED Qualifiers: Hyperlipidemia type: pure hypercholesterolemia Qualified Code(s): E78.00 - Pure hypercholesterolemia, unspecified; E78.0 - Pure hypercholesterolemia (8) Hypertension Code(s): I10 - ESSENTIAL (PRIMARY) HYPERTENSION Qualifiers: Hypertension type: essential hypertension Qualified Code(s): I10 - Essential (primary) hypertension Recommendations: 1. Serial blood cultures from different sites. 2. Reduce dose of beta alexey and if necessary discontinue. 3. If patient continues to have bradyarrhythmia may require permanent pacemaker. Case discussed with hospitalist and resident. Prognosis: Guarded Attestation: Documentation prepared by Domingo Stark, acting as medical review coordinator for Josh Valdivia MD.
[2016-11-29] MEDS: NIFEdipine E.R 60 MG TABLET (UD) PO SCH (10:42)
[2016-11-29] MEDS: SPIRONOLACTONE 25 MG TABLET (FP) PO SCH (10:43)
[2016-11-29] MEDS: ISOSORBIDE MONONITRATE 30 MG TAB.SR.24H (FP) PO SCH (10:43)
[2016-11-29] MEDS: VALSARTAN 160 MG TABLET (UD) PO SCH (10:43)
[2016-11-29] MEDS ORDERED: METOPROLOL SUCCINATE 25 MG TAB.SR.24H (FP) PO SCH (11:38)
--- NOTE | 2016-11-29 13:10 | PN ---
Physical Exam: SUBJECTIVE: Patient seen and examined by me at bedside. Overnight events noted. Patient reports no sleep last night and complains of a productive cough with yellow sputum that started yesterday. Patient reports "feeling feverish" as well. However, denies any body aches, nausea, vomiting, abdominal pain, chest pain, palpitations, shortness of breath. OBJECTIVE: Vital Signs Period Temp Pulse Resp BP Sys/Ziegler Pulse Ox Last 24 Hr 97.6 F-99 F 34-55 18-20 81-165/39-77 98 GENERAL: The patient is awake, alert, and fully oriented, in no acute distress. ENT: Moist mucous membranes. LUNGS: Breath sounds equal, clear to auscultation bilaterally, no wheezes, no crackles, no accessory muscle use. HEART: Bradycardia with regular rhythm, normal S1 and S2 without murmur, rub or gallop. ABDOMEN: Soft, nontender, nondistended, normoactive bowel sounds, no guarding. EXTREMITIES: No peripheral edema. NEUROLOGICAL: No focal deficits. Motor strength 5/5 throughout, sensory intact. Normal speech Active Medications Generic Name Dose Route Start Last Admin Trade Name Freq PRN Reason Stop Dose Admin Atorvastatin Calcium 20 mg 11/27/16 22:00 11/28/16 21:54 Lipitor - PO 20 mg HS CHYNA Administration Isosorbide Mononitrate 30 mg 11/28/16 10:00 11/29/16 10:43 Imdur - PO 30 mg DAILY CHYNA Administration Metoprolol Succinate 25 mg 11/29/16 11:38 Toprol Xl - PO DAILY CHYNA Montelukast Sodium 10 mg 11/27/16 22:00 11/28/16 21:54 Singulair - PO 10 mg HS CHYNA Administration Nifedipine 60 mg 11/28/16 12:00 11/29/16 10:42 Procardia Xl - PO 60 mg DAILY CHYNA Administration Spironolactone 25 mg 11/28/16 13:15 11/29/16 10:43 Aldactone - PO 25 mg DAILY CHYNA Administration Valsartan 160 mg 11/28/16 10:00 11/29/16 10:43 Diovan - PO 160 mg DAILY CHYNA Administration Head CT (11/27/16): No intracranial hemorrhage is seen. There has been no definite interval change in comparison to a previous CT study of 10/15/2016. Minimal to mild periventricular chronic microvascular changes are noted. There is no extra-axial fluid collection. Equivocal visualization of a 1.3 cm meningioma is noted along the left anterior cranial fossa floor ventrally adjacent to the midline (on coronal imaging). This possible small meningioma cannot be definitely seen on the previous exam which may be due to current artifact versus partial abnormality. No mass effect or perilesional edema is seen. Mild to moderate ventricular dilatation is noted probably due to central atrophy. Status post left mastoidectomy. Impression: No CT evidence of acute intracranial pathology. Equivocal 1.3 cm left frontal meningioma. Additional evaluation utilizing contrast enhanced CT or MRI may be performed. Alternatively correlate with 3 month follow-up CT or MRI. ASSESSMENT/PLAN: Patient is an 81 year old female with a PMHx of CAD, HTN, HLD, Mitral Valve replacement, Double Bypass, Asthma/COPD who was sent by her dentist for elevated blood pressure. Patient was found to have BP of 205/[address] revealed Meningioma. Patient to Telemetry for further monitoring and management. Hypertensive Urgency- Improved -Continue with Valsartan 160mg daily. If continues to have elevated BP may increase to 160mg BID, as per cardiology -Continue Imdur 30mg daily -Lasix switched to Aldactone 25mg daily -Decrease Metoprlol to 25mg daily -Continue Nifedipine 60mg daily Bradycardia- Acute -Likely secondary to Blood pressure medications -Continues to have heart rate between 28-50 BPM -If continues to have bradycardia, will likely need a permanent pacemaker -TSH wnl -Continue telemetry monitoring Productive Cough -Patient remains afebrile with no leukocytosis. -Initial Chest X-ray reveals no signs of infiltrate. Repeat X-Ray offered but patient denied -Will monitor off antibiotics. Incidental Meningioma Finding- Likely chronic -CT revaled 1.3 cm left frontal meningioma. -Does not need current surgical intervention as patient remains asymptomatic -Neurology consult appreciated -Will need to have a [address] and MRI as outpatient Pre-Diabetic- [place] -A1C 6.5% -Switched to Diabetic and sodium controlled diet -Will follow up in three months with PCP for repeat lab HLD-Chronic -Continue Lipitor 20mg daily Asthma/COPD- Controlled -In no acute exacerbation -Continue Singulair 10mg daily F/E/N -On no fluids -Electrolytes wnl -Sodium controlled diet Prophylaxis -SCD's for DVT -No GI prophylaxis required Disposition -Will Monitor patient off antibiotics overnight Visit type - Emergency Visit Emergency Visit: Yes ED Registration Date: 11/27/16 Care time: The patient presented to the Emergency Department on the above date and was hospitalized for further evaluation of their emergent condition. - New Patient This patient is new to me today: No - Critical Care Critical Care patient: No
--- NOTE | 2016-11-29 13:53 | PN ---
Teaching Attending Note Name of Resident: Geri Stanley ATTENDING PHYSICIAN STATEMENT I saw and evaluated the patient. I reviewed the resident's note and discussed the case with the resident. I agree with the resident's findings and plan as documented. SUBJECTIVE:c/o productive cough of yellow sputum. states she has this intermittently for several years. felt warm this AM no chills. denies dizzyness , CP, SOB, chills, night sweats, rhinorrhea, tinnitus, fullness of the ear or sinus pressure OBJECTIVE: Last Vital Signs Temp Pulse Resp BP Pulse Ox 99 F 40 L 20 165/77 98 11/29/16 10:00 11/29/16 10:00 11/29/16 10:00 11/29/16 10:00 11/28/16 21:00 General NAD HEENT no frontal or maxillary tenderness, no pharynx tenderness no pharynx erythema no exudate CV S1 S2 bradycardic no murmur Lungs CTA B/L No wheezing/rales/rhonchi ASSESSMENT AND PLAN: 81yo F with PMH CAD s/p CABG, HTN. MVP, and dyslipidemia sent to the ER by her PMD for BP 205/74 1. 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 improved on new regimen. metoprolol reduced. will increase acei if SBP >160. echo with no WMA or hypertrophy noted. cardio on board 2. Productive cough- afebrile. no leukocytosis. initial CXR on admission with no infiltrate. offered to repeat CXR to evaluate. will hold off on abx at this time and monitor. 3. Menigioma- incidental finding on CT scan. 1.3cm. asymptomatic. repeat MRI in 3 months 4. New onset pre-diabetic- A1c 6.5, diabetic teaching. diabetic diet. will need repeat testing in 3 months. 5. dyslipidemia- statin 6. DVT ppx- EAM
[2016-11-29] MEDS ORDERED: METOPROLOL SUCCINATE 25 MG TAB.SR.24H (FP) PO ONE (16:17)
[2016-11-29] MEDS: ATORVASTATIN CA 20 MG TABLET (FP) PO SCH (21:52)
[2016-11-29] MEDS: MONTELUKAST NA 10 MG TABLET PO SCH (21:53)
[2016-11-30] MEDS ORDERED: PT OWN MED DRAWER 7, Y5N ONE (09:01)
[2016-11-30] MEDS: SPIRONOLACTONE 25 MG TABLET (FP) PO SCH (10:21)
[2016-11-30] MEDS: NIFEdipine E.R 60 MG TABLET (UD) PO SCH (10:22)
[2016-11-30] MEDS: VALSARTAN 160 MG TABLET (UD) PO SCH ×2 (10:22→21:59)
[2016-11-30] MEDS: ISOSORBIDE MONONITRATE 30 MG TAB.SR.24H (FP) PO SCH (10:22)
[2016-11-30] MEDS: METOPROLOL SUCCINATE 50 MG TAB.SR.24H (FP) PO SCH (12:01)
--- NOTE | 2016-11-30 13:37 | PN ---
Progress Note (short form) - Note Progress Note: states cough has improved. SOLORIO resolved. denies CP, SOB,fever, chills, N/V/C/D. tolerating diet Current Medications Generic Name Dose Route Start Last Admin Trade Name Nataly PRN Reason Stop Dose Admin Atorvastatin Calcium 20 mg 11/27/16 22:00 11/29/16 21:52 Lipitor - PO 20 mg HS CHYNA Administration Isosorbide Mononitrate 30 mg 11/28/16 10:00 11/30/16 10:22 Imdur - PO 30 mg DAILY CHYNA Administration Montelukast Sodium 10 mg 11/27/16 22:00 11/29/16 21:53 Singulair - PO 10 mg HS CHYNA Administration Nifedipine 60 mg 11/28/16 12:00 11/30/16 10:22 Procardia Xl - PO 60 mg DAILY CHYNA Administration Spironolactone 25 mg 11/28/16 13:15 11/30/16 10:21 Aldactone - PO 25 mg DAILY CHYNA Administration Valsartan 160 mg 11/28/16 10:00 11/30/16 10:22 Diovan - PO 160 mg DAILY CHYNA Administration Last Vital Signs Temp Pulse Resp BP Pulse Ox 98.6 F 42 L 20 174/68 97 11/30/16 06:00 11/30/16 06:00 11/30/16 10:00 11/30/16 06:00 11/30/16 10:00 HR 65 BP 165/70 at time of my evaluation General NAD CV S1 S2 RRR no murmur/rub/gallop Lungs CTA B/L No wheezing/rales/rhonchi ASSESSMENT AND PLAN: 81yo F with PMH CAD s/p CABG, HTN. MVP, and dyslipidemia sent to the ER by her PMD for BP 205/74 1. 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 improved but above goal. no longer bradycardic. betablocker cancelled this AM. goal SBP <150 prior to discharge. will increase valsartan to BID dosing. cardio on board 2. Productive cough- afebrile. no leukocytosis. improved. no abx indicated 3. Menigioma- incidental finding on CT scan. 1.3cm. asymptomatic. repeat MRI in 3 months 4. New onset pre-diabetic- A1c 6.5, diabetic teaching. diabetic diet. will need repeat testing in 3 months. 5. dyslipidemia- statin 6. DVT ppx- EAM 7. d/c planning tomorrow if SBP remains controlled Visit type - Emergency Visit Emergency Visit: Yes ED Registration Date: 11/27/16 Care time: The patient presented to the Emergency Department on the above date and was hospitalized for further evaluation of their emergent condition. - New Patient This patient is new to me today: No - Critical Care Critical Care patient: No - Discharge Referral Referred to [facility] No
[2016-11-30] MEDS: MONTELUKAST NA 10 MG TABLET PO SCH (21:59)
[2016-11-30] MEDS: ATORVASTATIN CA 20 MG TABLET (FP) PO SCH (21:59)
[2016-12-01 07:59] VITALS: TEMP 98.7
[2016-12-01] MEDS: VALSARTAN 160 MG TABLET (UD) PO SCH (09:21)
[2016-12-01] MEDS: ISOSORBIDE MONONITRATE 30 MG TAB.SR.24H (FP) PO SCH (09:21)
[2016-12-01] MEDS: NIFEdipine E.R 60 MG TABLET (UD) PO SCH (09:21)
[2016-12-01] MEDS: SPIRONOLACTONE 25 MG TABLET (FP) PO SCH (09:21)
--- NOTE | 2016-12-01 12:58 | DS ---
Physical Exam: SUBJECTIVE: Patient seen and examined. cough has resolved. no CP, sob, fever, chills, N/V/C/D OBJECTIVE: Vital Signs Period Temp Pulse Resp BP Sys/Ziegler Pulse Ox Last 24 Hr 98 F-98.7 F 51-59 20-20 115-170/46-74 96 PHYSICAL EXAM GENERAL: The patient is awake, alert, and fully oriented, in no acute distress. HEAD: Normal with no signs of trauma. EYES: PERRL, extraocular movements intact, sclera anicteric, conjunctiva clear. ENT: Ears normal, nares patent, oropharynx clear without exudates, moist mucous membranes. NECK: Trachea midline, full range of motion, supple. LUNGS: Breath sounds equal, clear to auscultation bilaterally, no wheezes, no crackles, no accessory muscle use. HEART: bradycardic, S1, S2 without murmur, rub or gallop. ABDOMEN: Soft, nontender, nondistended, normoactive bowel sounds, no guarding, no rebound, no hepatosplenomegaly, no masses. EXTREMITIES: 2+ pulses, warm, well-perfused, no edema. NEUROLOGICAL: Cranial nerves II through XII grossly intact. Normal speech, gait not observed. PSYCH: Normal mood, normal affect. SKIN: Warm, dry, normal turgor, no rashes or lesions noted. LABS HOSPITAL COURSE: Date of Admission:11/27/16 Date of Discharge: 12/01/16 Admitting diagnosis: HTN urgency, pre-diabetes, frontal meningioma Pre hospital course 81-year-old woman, accompanied by her daughter, with a significant past medical history of hypertension, hyperchoelsterolemia, mitral valve replacement, double bypass, asthma, chronic obstructive pulmonary disease and colonic polyps who was sent to the emergency department by her dentist for further evaluation of an elevated blood pressure. Upon ED arrival, the patient was noted to have a blood pressure of 205/74, bradycardic to 48 bpm, and an oxygen saturation of 94 % on room air. As per patient, she reports she was not feeling like her usual self, last night, as she felt drowsy while watching television. She ultimately fell asleep and this morning, she felt somewhat of an unsteady gait, however she went to her routine checkup with her dentist. She reports she had to wait approximately 1 hour and 30 minutes, felt frustrated and her blood pressure was measured and she reports it was high. she reports compliance with all of her anti-hypertensive medications this morning. She currently denies chest pain, lightheadedness, dizziness, visual changes, neck pain,back pain, leg pain/ swelling, abdominal pain, nausea, vomiting, diarrhea, cough, shortness of breath. Subsequent hospital course [facility] for [facility] cardiac monitoring. evaluated by neuro and cardio. BP medications adjusted and HR and BP improved. echo done. On property assessment monitor significant pauses were seen which were increased at night time. no neurological deficit seen. evaluated by neuro who recommended repeat MRI in 3 months A1c done 6.5. counseled by basketball commentator and counseled on risks of diabetes which can be avoided with diet and excercise with weight loss. d/c home on property assessment monitor. will follow up [facility] cardio this week for polysommography. counseled on importance of medication compliance and follow up. verbalized understanding. answered all questions. Minutes to complete discharge: 40 Discharge Summary Reason For Visit: SYMPTOMATIC SINUS BRADYCARDIA Current Active Problems Cerebral meningioma (Acute) Hypertensive crisis (Acute) Meningioma (Acute) S/P aortic valve replacement with bioprosthetic valve (Acute) Symptomatic sinus bradycardia (Acute) Condition: Improved - Instructions Diet, Activity, Other Instructions: You were admitted and treated for uncontrolled blood pressure and slow heart rate. Both of these have improved but you will continue to require close monitoring. Your blood pressure medications have changed. Please refer to list and take as instructed. You are going with a heart monitor, it will need to be returned to cardiology department tomorrow. It is important to follow up with Dr Barber on to check your blood pressure and follow up on the results of the property assessment monitor. You will also be set up for a sleep study to evaluate if you have sleep apnea Follow a low salt, diabetic diet. Refer to handout from this packet as well as material given to you by basketball commentator Follow up with your primary care doctor in a week. You will need your A1c ( diabetic number) repeated in 3 months to see if it improved or if you need to be started on diabetic medications. You will also require a MRI of your brain to monitor the stability of the meningioma that was found on this admission. If you develop chest pain or headache, check your blood pressure. If it is elevated call cardiology. If your blood pressure is >190/100 then COME TO THE ER IMMEDIATELY If you develop chest pain, shortness of breath, slurred speech or one sided weakness return to the ER. Referrals: Dorota Blanchard MD [Primary Care Provider] - Josh Valdivia MD [Staff Physician] - Disposition: HOME - Home Medications Comprehensive Discharge Medication List: Ambulatory Orders Atorvastatin Ca [Lipitor] 20 mg PO DAILY 11/27/16 Isosorbide Mononitrate [Isosorbide Mononitrate ER] 30 mg PO DAILY 11/27/16 Montelukast Na [Singulair -] 10 mg PO HS 11/27/16 Hydrochlorothiazide [Hctz -] 12.5 mg PO DAILY #30 cap 12/01/16 Nifedipine ER [Procardia XL -] 60 mg PO DAILY #30 tab 12/01/16 Spironolactone [Aldactone -] 25 mg PO DAILY #30 tablet 12/01/16 Valsartan [Diovan] 160 mg PO BID #60 tablet 12/01/16 This patient is new to me today: No Emergency Visit: Yes ED Registration Date: 11/27/16 Care time: The patient presented to the Emergency Department on the above date and was hospitalized for further evaluation of their emergent condition. Critical Care patient: No - Discharge Referral Referred to [facility] Yes Physician Referral: Dorota Blanchard MD ([facility])
--- NOTE | 2016-12-01 13:31 | PN ---
Progress Note (short form) - Note Progress Note: 81 year old female with h/o Hcvd, recent episode of accelerated hypertension, s/ pbioprosthetic aortic valva replacements/p CABg,bronchial asthma,COPD,h/o of an UTR infection most likely viral.Pt. also was noted to have sinus bradycardia and junctional escape rhythm partly related to beta blockers which were tapered off. Rare episode of non condunducted SPBs attimes followed by junctioal escape beats during sleep.BP is better controlled.C/O chronic fatique and h/o of snoring. Active Medications Generic Name Dose Route Start Last Admin Trade Name Freq PRN Reason Stop Dose Admin Atorvastatin Calcium 20 mg 11/27/16 22:00 11/30/16 21:59 Lipitor - PO 20 mg HS CHYNA Administration Isosorbide Mononitrate 30 mg 11/28/16 10:00 12/01/16 09:21 Imdur - PO 30 mg DAILY CHYNA Administration Montelukast Sodium 10 mg 11/27/16 22:00 11/30/16 21:59 Singulair - PO 10 mg HS CHYNA Administration Nifedipine 60 mg 11/28/16 12:00 12/01/16 09:21 Procardia Xl - PO 60 mg DAILY CHYNA Administration Spironolactone 25 mg 11/28/16 13:15 12/01/16 09:21 Aldactone - PO 25 mg DAILY CHYNA Administration Valsartan 160 mg 11/30/16 22:00 12/01/16 09:21 Diovan - PO 160 mg BID CHYNA Administration Vital Signs Period Temp Pulse Resp BP Sys/Ziegler Pulse Ox Last 24 Hr 98 F-98.7 F 51-59 20-20 115-170/46-74 96 O:81 yr. old female was in no distress, no pallor,cyanosis,jaundice or clubbing NECK:supple,no JVD, -ve,HJR reflux.carotids were equal,no bruits. HEART: PMI in the 5th ICS,no heaves or thrills,S1 and S2 normal.grade 1/6 ejection systolic murmur LSB,no gallops. LUNGS: Clear on auscultation. ABDOMEN: Soft, nontender, no hepatosplenomegaly,no masses where felt. Extremities: No calf tenderness or dependent edema. A: 1. Hypertension/HCVD. 2. Sleep apnea needs exclusion. 3. CAD/S/pCABG. 4. S/P bioprosthetic aortic vavle replacement. 5. Bronchial asthma/COPD. 6. Poor compliance. 7. Exogenous obesity. 8. Brabyarrthmias, sick sinus syndrome needs exclusion. P: Case discussed with hospitalist. 1. Holter monitor. 2. Sleep study. 3. Office f/u [facility]. 4. Add low dose HCTZ. 5.Risk modifications.
[2016-12-01 14:43] VITALS: BP 133/88; PULSE 66
--- NOTE | 2016-12-02 12:24 | PN ---
DATE OF VISIT: 11/30/2016 Request for cardiology consultation. Kindly note consultation was done on November 28, 2016. This would be a hospital note. The patient, an 81-year-old female with a history of critical aortic stenosis, status post bioprosthetic aortic valve replacement, coronary artery disease, status post coronary artery bypass grafting, history of bronchial asthma/COPD, was admitted with symptoms of cough, expectoration, and states she had low-grade fever and also had accelerated systolic hypertension. Since admission, patient had periods of sinus bradycardia alternating with junctional escape rhythm and the dose of beta blockers was reduced. Patient currently is in regular sinus rhythm. She continues to have cough with expectoration. There is no history of chills or fever. PHYSICAL EXAMINATION: Vital Signs: Blood pressure is 174/68 mmHg. Pulse was 62 beats per minute and regular. Respirations are 20 per minute and regular. Temperature was 98.6 degrees Fahrenheit. Neck: Supple, no jugular venous distention, carotids were equal and upstrokes were normal, no bruits were heard and no thyromegaly was present. Heart: PMI was at the 5th intercostal space, no heaves or thrills, S1 and S2 were normal, grade 1/6 ejection systolic murmur was heard along the left sternal border, no murmur or gallops were heard. Lungs: Clear on auscultation. Abdomen: Protuberant, soft, and nontender. No hepatosplenomegaly or palpable masses were felt. Bowel sounds were present and no bruits were heard. Extremities: No calf tenderness or dependent edema, pulses were equal. X-ray, chest, dated November 27, 2016. Impression: No acute process, large heart, previous open chest and shoulder surgery. Scarring or atelectasis, left base. Similar findings to . IMPRESSION: 1. Hypertension, hypertensive cardiovascular disease with elevated systolic blood pressure. 2. Clinical presentation compatible with acute bronchitis. 3. History of bronchial asthma. 4. Status post coronary artery bypass grafting. 5. Status post bioprosthetic aortic valve replacement. 6. History of chronic obstructive pulmonary disease. 7. Recent dinorah arrhythmia associated with junctional escape rhythm, most likely related to beta blockade. 8. History of cerebral meningioma. RECOMMENDATIONS: 1. Many need further adjustment of therapy if systolic blood pressure remains elevated. 2. Followup basic metabolic profile. 3. Followup x-ray, chest. 4. Increase ambulation. Thank you. THOMAS CRUZ M.D. [id number]
--- NOTE | 2016-12-02 16:29 | HOL ---
Hook-up date: 2016-12-01 13:22:00 Duration: 23:52:00 Test Indications: Medications: 26996 QRS complexes 693 Ventricular ectopics which represent <1 % of total QRS comp. 9 Supraventricular ectopics which represent <1 % of total QRS comp. * Paced QRS complexs which represent % of total QRS comp. * % of Time Classified as Noise VENTRICULAR ECTOPY 688 Isolated 20 Bigeminal Cycles 1 Couplets 1 Runs 3 Beats in Runs 3 Beats LONGEST at 141 BPM at 14:05:41 2016-12-01 3 Beats FASTEST at 141 BPM at 14:05:41 2016-12-01 SUPRAVENTRICULAR ECTOPY 9 Isolated 0 Couplets 0 Runs 0 Beats in Runs * Beats LONGEST at * BPM at :: -- * Beats FASTEST at * BPM at :: -- HEART RATES 32 MIN at 04:51:30 2016-12-02 60 AVG 97 MAX at 08:58:01 2016-12-02 LONGEST RR 3.504 secs at 05:00:38 2016-12-02 SCANNED BY SANTHOSH BECKETT 12/02/2016 NO DIARY SUBMITTED 1. BASELINE RHYTHM APPEARS SINUS WITH FREQUENT ECTOPIC ATRIAL RHYTHM AND PROBABLE JUNCTONAL RHYTHM (BRADYCARDIA) WITH MORPHOLOGICALLY DIFFERENT P WAVES. AVERAGE HR IS 60 BPM AND RATES VARIED FROM 32 TO 97 BPM,. 2. OCCASIONAL VENTRICULAR ECTOPIES WITH PVCS 3. RARE ATRIAL ECTOPIES 4. NO SIGNIFICANT ST OR T WAVE ABNORMALITIES 5. DIARY WAS NOT SUBMITTED CLINICAL CORRELATION IS RECOMMENDED Confirmed by CARY BURNETTE, MOHINDER ([id number]) on 12/02/2016 4:28:41 PM Referred By: Overread By: MOHINDER TOWNSEND MD
== END 2016-12-01 15:02 | disposition home or self-care (01) | DRG 309 ==
LOC: JER 14:18 → JERBED 18:40 → J4W 21:40
PROVIDERS: ADMIT Internal Medicine; ATTEND Internal Medicine
DX: R00.1 Bradycardia, unspecified (principal); I16.1 Hypertensive emergency; D32.0 Benign neoplasm of cerebral meninges; I11.9 Hypertensive heart disease without heart failure; G47.30 Sleep apnea, unspecified; I25.10 Atherosclerotic heart disease of native coronary artery without angina pectoris; Z95.1 Presence of aortocoronary bypass graft; E66.09 Other obesity due to excess calories; Z68.29 Body mass index [BMI] 29.0-29.9, adult; J45.909 Unspecified asthma, uncomplicated; J44.9 Chronic obstructive pulmonary disease, unspecified; I35.0 Nonrheumatic aortic (valve) stenosis; E78.5 Hyperlipidemia, unspecified; Z87.891 Personal history of nicotine dependence
CPT/HCPCS: 36415; 70450-TC; 71010-TC; 80053; 80061; 81003; 81015; 82550; 83036; 83721; 83735; 83880; 84100; 84443; 84484; 85025; 85610; 85730; 93005; 93010; 93225; 93226; 93306-TC; 99284-25

== ENCOUNTER 2018-12-05 14:52 | Emergency (ER) | payer OTHER, MEDICARE ==
[2018-12-05 14:57] VITALS: BP 132/53; PULSE 52; TEMP 98.2; BMI 29.2
--- NOTE | 2018-12-05 16:50 | PDOC ---
History of Present Illness - General Chief Complaint: Redness To Affected Area Stated Complaint: REDNESS, RASH TO EXTREMITIES Time Seen by Provider: 12/05/18 16:04 - History of Present Illness Initial Comments: 12/05/18 16:54 83yo female with a vesicular rash to arms, hands, and legs. Pt states she has had lyme disease twice in the past. States she was out in the garden and got poison bernarda. States her family was concerned because of redness to the Lower leg and vesicles that are in a linear pattern that she may have lyme again. Denies bullseye lesions. Denies target signs. No tick bites. Pt states the rash is itchy. States it feels similar to poison bernarda in the past, not similar to lyme in the past. Pt silvana negrete. No cp/sob. No abd pain. No n/v/d. No dysuria. No joint pain. Pt with a linear vesicular rash to hands, upper arms, lower legs. No sob or cough. Pmhx: htn, cad, hld, lyme disease pshx: cabg all: pcn, monosodium glutamate Past History - Past Medical History Allergies/Adverse Reactions: Allergies Allergy/AdvReac Type Severity Reaction Status Date / Time Penicillins Allergy Mild Rash Verified 12/05/18 14:54 monosodium glutamate Allergy Unknown Verified 12/05/18 14:54 Home Medications: Ambulatory Orders Atorvastatin Ca [Lipitor] 20 mg PO DAILY 11/27/16 Isosorbide Mononitrate [Isosorbide Mononitrate ER] 30 mg PO DAILY 11/27/16 Montelukast Na [Singulair -] 10 mg PO HS 11/27/16 Hydrochlorothiazide [Hctz -] 12.5 mg PO DAILY #30 cap 12/01/16 Nifedipine ER [Procardia XL -] 60 mg PO DAILY #30 tab 12/01/16 Spironolactone [Aldactone -] 25 mg PO DAILY #30 tablet 12/01/16 Valsartan [Diovan] 160 mg PO BID #60 tablet 12/01/16 Hydrocortisone 1% Cream [Hytone 1% Cream -] 1 applic TP BID #1 tube 12/05/18 Anemia: No Asthma: Yes Cancer: No Cardiac Disorders: No CVA: No COPD: Yes (COPD) CHF: No Dementia: No Diabetes: No GI Disorders: Yes (COLONIC POLYPS) Disorders: No HTN: Yes Hypercholesterolemia: Yes Liver Disease: No Seizures: No Thyroid Disease: No - Surgical History Abdominal Surgery: Yes Appendectomy: Yes Cardiac Surgery: Yes (August,) Cholecystectomy: No Lung Surgery: No Neurologic Surgery: No Orthopedic Surgery: Yes (RIGHT SHOULDER ARTHROSCOPIC SURGERY) - Suicide/Smoking/Psychosocial Hx Smoking History: Former smoker Have you smoked in the past 12 months: No Number of Cigarettes Smoked Daily: 0 If you are a former smoker, when did you quit?: 30 YEARS Information on smoking cessation initiated: No Hx Alcohol Use: No Drug/Substance Use Hx: No Substance Use Type: Alcohol Hx Substance Use Treatment: No Review of Systems - Review of Systems Able to Perform ROS?: Yes Is the patient limited Romansh proficient: No Constitutional: No: Chills, Fever HEENTM: No: Nose Pain, Throat Pain Respiratory: No: Cough, Shortness of Breath Cardiac (ROS): No: Chest Pain ABD/GI: No: Diarrhea, Nausea, Vomiting, Abdominal cramping : No: Burning, Dysuria Musculoskeletal: No: Back Pain, Joint Pain, Joint Swelling, Muscle Pain, Muscle Weakness, Neck Pain, Joint Stiffness Integumentary: Yes: Pruritus, Rash Neurological: No: Headache, Numbness, Paresthesia, Seizure, Tingling, Tremors, Weakness, Ataxia All Other Systems: Reviewed and Negative *Physical Exam - Vital Signs Last Vital Signs Temp Pulse Resp BP Pulse Ox 98.2 F 52 L 18 132/53 L 96 12/05/18 14:52 12/05/18 14:52 12/05/18 14:52 12/05/18 14:52 12/05/18 14:52 - Physical Exam General Appearance: Yes: Nourished, Appropriately Dressed. No: Apparent Distress HEENT: positive: EOMI, Normal Voice Neck: positive: Supple Respiratory/Chest: positive: Lungs Clear, Normal Breath Sounds. negative: Respiratory Distress Cardiovascular: positive: Regular Rhythm, Regular Rate, S1, S2. negative: Edema Gastrointestinal/Abdominal: positive: Soft, Other (small vesicular rash to upper L abdomen- no drainage). negative: Guarding, Rebound, Tenderness Musculoskeletal: positive: Normal Inspection. negative: CVA Tenderness Extremity: positive: Normal Capillary Refill, Normal Range of Motion. negative : Swelling, Calf Tenderness Integumentary: positive: Rash, Other (vesicular rash in linear streak between fingers, upper arms, upper L abdomen, L lower extremity ) Neurologic: positive: measurement specialist II-XII NML intact, Fully Oriented, Alert, Normal Mood/ Affect, Motor Strength 5/5. negative: Sensory Deficit Medical Decision Making - Medical Decision Making 12/05/18 16:37 a/p: 83yo female with a pustular rash to fingers, legs, upper arm - that is pruritic -consistent with poison bernarda and contact dermatitis -no target signs or tick bites -rash it pruritic -no active drainage, no surrounding erythema -will need topical steroids -follows with dr. hinojosa and has appt for friday -L calf redness with linear pustular/vesicular lesions - poison bernarda rash -no bullseye -will rx hydrocortisone *DC/Admit/Observation/Transfer Diagnosis at time of Disposition: Contact dermatitis - Discharge Dispostion Disposition: HOME Condition at time of disposition: Stable Decision to Admit order: No - Prescriptions Prescriptions: Hydrocortisone 1% Cream [Hytone 1% Cream -] 1 applic TP BID #1 tube - Referrals Referrals: Geronimo Hinojosa MD [Primary Care Provider] - Joana James [Staff Physician] - - Patient Instructions Printed Discharge Instructions: DI for Contact Dermatitis Additional Instructions: Please keep your appointment to see your pmd on friday as scheduled. Please also make an appointment to see the joiner helper this week. Please use all medications as prescribed. Please return to the ED with any further concerns or complaints. If you develop a target sign or bullseye rash to the skin please return to the ED immediately or follow up with your PMD. Please take and use all medications as prescribed. - Post Discharge Activity
== END 2018-12-05 16:55 | disposition home or self-care (01) ==
LOC: FER 14:52
DX: L25.9 Unspecified contact dermatitis, unspecified cause (principal); Z87.891 Personal history of nicotine dependence; J45.909 Unspecified asthma, uncomplicated; I10 Essential (primary) hypertension; E78.00 Pure hypercholesterolemia, unspecified
CPT/HCPCS: 99281-25

== ENCOUNTER 2019-06-07 12:40 | Inpatient (IN) | payer OTHER, MEDICARE ==
--- NOTE | 2019-06-07 12:44 | PDOC ---
Attending Attestation - Resident Resident Name: Anika Albert - ED Attending Attestation I have performed the following: I have examined & evaluated the patient, The case was reviewed & discussed with the resident, I agree w/resident's findings & plan, Exceptions are as noted - HPI HPI: 06/07/19 13:30 83yo female with hx of cad, cabg, copd/asthma with increasing sob. States she had cp 2 nights ago and took a SL nitro at that time. States she has had increasing sob, mckinney. Denies coughing. No f/c. No cp at this moment. Pt states her feet have been swelling. PMd Dr. Carroll from [facility]. Cards Dr. Valdivia. Pt states she has not seen cards in over 6 months. Pt denies sore throat, rhinorrhea. No abd pain. No n/v/d. No calf cramping. No other complaints. Pt is a poor historian and cannot provide a complete hx. - Physicial Exam PE: 06/07/19 13:32 Gen: aaox3, tachypnic, dinorah heent: eomi, mmm heart: +s1s2 dinorah lungs: cta b/l abd: soft, nt/nd +bs ext: 1+ pitting edema to LE b/l, pedal pulses intact - Medical Decision Making 06/07/19 13:36 a/p: 83yo female with cp/sob -orthopnea, mckinney -le swelling -concern for chf exacerbation -will send labs, trop, ekg, cxr -will give asa -currently cp free -pt arrives hypertensive, did not take her meds today -will monitor and reassess 06/07/19 13:37 cxr shows pulm vasc congestion - will give ntg, lasix -pt will need admission for chf exacerbation -pt arrived with pulse ox in 80s and improved to 92 on NC -will start nitro and lasix 06/07/19 14:12 pt peeing and feeling better after lasix bp improved to 169/69 06/07/19 14:14 pt agrees to stay for further eval labs reviewed, pending trop and bnp pt feels better after lasix and nitro breathing improved, no longer tachypnic 06/07/19 14:52 case discussed with Kinjal Ly - accepts pt to service under Dr. Jasso Discharge - Discharge Information Problems reviewed: Yes Clinical Impression/Diagnosis: Pulmonary vascular congestion, Chest pain, MCKINNEY (dyspnea on exertion) Condition: Guarded - Admission Yes - Follow up/Referral - Patient Discharge Instructions - Post Discharge Activity Heart Score/ECG Review - ECG Intrepretation Comment:: 06/07/19 13:09 sinus dinorah at 48, q waves anteriorly which are age indeterminate, no acute st/ t wave findings, abnl ekg
[2019-06-07 13:05] VITALS: BMI 30.2
[2019-06-07] MEDS ORDERED: NITROGLYCERIN 2% OINTMENT - 1GM PACKET TD ONE ×2 (13:29→13:35)
[2019-06-07] MEDS ORDERED: FUROSEMIDE 40 MG/4 ML INJECTABLE VIAL IVPUSH ONE ×2 (13:29→19:00)
[2019-06-07] MEDS ORDERED: ACETAMINOPHEN 325 MG TABLET (FP) PO ONE (13:30)
[2019-06-07] MEDS ORDERED: ASPIRIN 81 MG CHEWABLE TABLETS PO ONE (13:31)
[2019-06-07] MEDS ORDERED: ACETAMINOPHEN 325 MG TABLET (FP) ONE (13:35)
[2019-06-07] MEDS ORDERED: ASPIRIN 81 MG CHEWABLE TABLETS ONE (13:35)
[2019-06-07] MEDS ORDERED: FUROSEMIDE 40 MG/4 ML INJECTABLE VIAL ONE (13:35)
--- NOTE | 2019-06-07 13:39 | PDOC ---
History of Present Illness - General Chief Complaint: Respiratory Stated Complaint: COUGHING CHEST PAIN RESPIRATORY Time Seen by Provider: 06/07/19 12:42 - History of Present Illness Initial Comments: Andreina Dewitt is an 83yo woman with a PMH of CAD s/p 2vCABG and mitral valve replacement, HTN, HLD, asthma/COPD who presents with two days of left- sided chest and arm pain as well as worsening shortness of breath. She says that the pain started the night before last while she was sitting in bed. She tried taking a sublingual nitroglycerine without any improvement in her symptoms. She denies any associated nausea, lightheadedness, or sweating but does endorse more difficulty breathing along with the pain. The shortness of breath continued through the weekend, especially when she tried to lay down or move around. Ms Dewitt reports that she usually can walk about 10 feet, but she can "barely move' currently before she becomes SOB. She also says that she cannot lay down at all over the past few days because she becomes so SOB when she lays flat. She denies any recent fever/chills, cough, congestion, worsening leg swelling, or weight gain. Ms Dewitt says that she does have inhalers at home for asthma/COPD but does not take them very often. She tried using her albuterol inhaler this weekend without any improvement in her symptoms. She indicates that she is not very compiant with many of her medications but is not sure what she has stopped taking. Past History - Past Medical History Allergies/Adverse Reactions: Allergies Allergy/AdvReac Type Severity Reaction Status Date / Time Penicillins Allergy Mild Rash Verified 06/07/19 12:43 monosodium glutamate Allergy Unknown Verified 06/07/19 12:43 Home Medications: Ambulatory Orders Atorvastatin Ca [Lipitor] 20 mg PO DAILY 11/27/16 Isosorbide Mononitrate [Isosorbide Mononitrate ER] 30 mg PO DAILY 11/27/16 Montelukast Na [Singulair -] 10 mg PO HS 11/27/16 Hydrochlorothiazide [Hctz -] 12.5 mg PO DAILY #30 cap 12/01/16 Nifedipine ER [Procardia XL -] 60 mg PO DAILY #30 tab 12/01/16 Anemia: No Asthma: Yes Cancer: No Cardiac Disorders: Yes CVA: No COPD: Yes (COPD) CHF: No Dementia: No Diabetes: No GI Disorders: Yes (COLONIC POLYPS) Disorders: No HTN: Yes Hypercholesterolemia: Yes Liver Disease: No Seizures: No Thyroid Disease: No - Surgical History Abdominal Surgery: Yes Appendectomy: Yes Cardiac Surgery: Yes (August,) Cholecystectomy: No Lung Surgery: No Neurologic Surgery: No Orthopedic Surgery: Yes (RIGHT SHOULDER ARTHROSCOPIC SURGERY) - Psycho Social/Smoking Cessation Hx Smoking History: Former smoker Have you smoked in the past 12 months: No Number of Cigarettes Smoked Daily: 0 If you are a former smoker, when did you quit?: 40 YEARS Information on smoking cessation initiated: No 'Breaking Loose' booklet given: 12/05/18 Hx Alcohol Use: Yes (SOCIAL) Drug/Substance Use Hx: No Substance Use Type: Alcohol Hx Substance Use Treatment: No Review of Systems - Review of Systems Comments:: General: No fevers, no chills, no weight or appetite change, + malaise HEENT: No changes in vision, no changes in hearing, no congestion, no sore throat CV: No chest pain, no palpitations, + LE edema, +orthopnea, +DAMICO Pulm: + SOB, no cough, no wheezing GI: No nausea or vomiting, no change in bowel habits, no melena : No frequency, no urgency, no dysuria Musc: No back pain, no joint swelling, no recent injury Skin: No rash, no lesions, no erythema Endo: No excessive thirst, no heat/cold intolerance Heme: No unusual bruising or bleeding, no swollen glands Neuro: No syncope, no numbness/tingling, no focal weakness Vasc: No claudication Psych: No recent change in mood, no SI or HI *Physical Exam - Vital Signs Last Vital Signs Temp Pulse Resp BP Pulse Ox 97.8 F 42 L 24 H 195/77 H 96 06/07/19 12:41 06/07/19 13:25 06/07/19 13:25 06/07/19 13:25 06/07/19 13:25 - Physical Exam General: Comfortable, no acute distress HEENT: Atraumatic, PERRL, EOMI, MMM, voice normal, normal neck ROM Cards: RRR, no murmur appreciated Pulm: Comfortable on room air, clear to auscultation bilaterally. No wheezing or crackles appreciated. Air movement heard bilaterally Abd: Soft, nontender, nondistended Ext: Atraumatic. 2+ BLE edema. ROM intact. WWP Skin: Normal color, no rashes or lesions Neuro: A&Ox3, CN grossly intact, normal speech, motor/sensory grossly intact and symmetric Psych: Mood appropriate to situation ED Treatment Course - LABORATORY CBC & Chemistry Diagram: 06/07/19 13:25 06/07/19 13:25 - RADIOLOGY Radiology Studies Ordered: Category Date Time Status CHEST X-RAY PORTABLE* [RAD] Stat Radiology 06/07/19 13:00 Taken Medical Decision Making - Medical Decision Making 06/07/19 13:30 Andreina Dewitt is an 83yo woman with a PMH of CAD s/p 2vCABG and mitral valve replacement, HTN, HLD, asthma/COPD who presents with two days of left- sided chest and arm pain as well as worsening dyspena on exertion and orthopnea. She report that she is often noncompliant with her medications, especially her inhalers. She denies any associated nausea, lightheadedness, sweating, fever/chills, cough, congestion, worsening leg swelling, or weight gain. - Markedly bradycardic on initial vitals. EKG and rhythm strip obtained. Sinus dinorah with sinus arrhythmia, HR 48, normal axis, normal intervals. No t-wave or ST changes - CXR with bilateral pulmonary congestion. 40mg IV lasix ordered. - ASA 325mg for chest pain - Concerning for CHF exacerbation. Less likely COPD exacerbation given no cough , sputum, or other respiratory symptoms. Possible ACS contributing to worsening symptoms - Per chart review, has been bradycardic and evaluated with a holter monitor in the past. Telemetry ordered - CBC, CMP, trop, mag, EKG, CXR 06/07/19 14:14 - Labs reviewed. Trop pending, but otherwise unremarkable - 400cc UOP - BP now 169/69 - Pt reports feeling improved - Will admit to telemetry. Sign out given to TRANSIT WORKER Kinjal Ly Discussed with Dr Karen Albert PGY2 Discharge - Discharge Information Problems reviewed: Yes Clinical Impression/Diagnosis: Pulmonary vascular congestion, Chest pain, DAMICO (dyspnea on exertion) Condition: Guarded - Admission Yes - Follow up/Referral - Patient Discharge Instructions - Post Discharge Activity
[2019-06-07 13:47] LABS: BASO % 0.7 % (0-2.0); EOS % 3.6 % (0-4.5); HEMATOCRIT 40.1 % (32.4-45.2); LYMPH % 19.4 % (8-40); MCH 30.3 pg (25.7-33.7); MCHC 32.5 g/dl (32.0-36.0); MEAN CELL VOLUME 93.4 fl (80-96); MONO % 8.4 % (3.8-10.2); NEUT % 67.9 % (42.8-82.8); PLATELET COUNT 186 K/MM3 (134-434); RDW 13.1 % (11.6-15.6); WHITE BLOOD COUNT 8.7 K/mm3 (4.0-10.8)
[2019-06-07 13:48] LABS: INR 1.36 (0.82-1.09); PROTHROMBIN TIME (PATIENT) 15.1 SEC (10.2-13.0)
[2019-06-07 13:51] LABS: BILIRUBIN,TOTAL 1.2 mg/dl (0.2-1); CALCIUM 8.8 mg/dl (8.5-10); CREATININE 0.8 mg/dl (0.55-1.3); MAGNESIUM 2.3 mg/dL (1.8-2.4); POTASSIUM 4.1 mmol/L (3.5-5.1); TOT PROT 7.2 g/dl (6.4-8.2)
[2019-06-07] MEDS: ISOSORBIDE MONONITRATE 30 MG TAB.SR.24H (FP) PO SCH (17:15)
[2019-06-07] MEDS: NIFEdipine E.R 60 MG TABLET (UD) PO SCH (17:20)
--- NOTE | 2019-06-07 19:20 | HP ---
Documentation entered by Amisha Londono SCRIBE, acting as scribe for Ariela Ly NP. CHIEF COMPLAINT: Shortness of breath PCP: Dr. Carroll from [facility]/[place]. Cardiology: previously seen by a roof shingler whom patient chooses to no longer follow with HISTORY OF PRESENT ILLNESS: Patient is an 83 year-old female with a PMH significant for HTN, HLD, CAD s/p 2vCABG and mitral valve replacement, diastolic heart failure, and asthma/COPD. Patient presented to the ED for evaluation of left-sided chest pain and worsening SOB x 3 days. Patient is a confused historian. She states she developed pain under left breast 3 days ago while lying in bed. She took nitroglycerin but cannot recall if it helped. She has chronic SOB, but it has been much worse over the past few days, can only walk about 5-10 feet before becoming profoundly SOB. She has had to raise the head of her bed and use 2 pillows at night. ER course was notable for: (1) SpO2 80s (2) Lasix IV 40mg x 1; nitro paste 1 inch; ASA 325mg x 1 Recent Travel: None reported. PAST MEDICAL HISTORY: Hypertension Hyperlipidemia Coronary artery disease Diastolic heart failure Asthma COPD PAST SURGICAL HISTORY: CABG x 2 Mitral valve replacement Right shoulder arthroscopic surgery Appendectomy Social History: , lives alone Smoking: quit 40 years ago, smoked for 10 years Alcohol: occasionally Drugs: denies Allergies Penicillins Allergy (Mild, Verified 06/07/19 12:43) Rash monosodium glutamate Allergy (Unknown, Verified 06/07/19 12:43) reaction-severe headache HOME MEDICATIONS: Home Medications Medication Instructions Recorded Atorvastatin Ca [Lipitor] 20 mg PO DAILY 11/27/16 Isosorbide Mononitrate [Isosorbide 30 mg PO DAILY 11/27/16 Mononitrate ER] Montelukast Na [Singulair -] 10 mg PO HS 11/27/16 Hydrochlorothiazide [Hctz -] 12.5 mg PO DAILY #30 cap 12/01/16 Nifedipine ER [Procardia XL -] 60 mg PO DAILY #30 tab 12/01/16 REVIEW OF SYSTEMS CONSTITUTIONAL: Absent: fever, chills, diaphoresis, generalized weakness, malaise, loss of appetite, weight change HEENT: Absent: rhinorrhea, nasal congestion, throat pain, throat swelling, difficulty swallowing, mouth swelling, ear pain, eye pain, visual changes CARDIOVASCULAR: Absent: chest pain, syncope, palpitations, irregular heart rate, lightheadedness , peripheral edema RESPIRATORY: +shortness of breath,+orthopnea Absent: cough, dyspnea with exertion, wheezing, stridor, hemoptysis GASTROINTESTINAL: Absent: abdominal pain, abdominal distension, nausea, vomiting, diarrhea, constipation, melena, hematochezia GENITOURINARY: Absent: dysuria, frequency, urgency, hesitancy, hematuria, flank pain, genital pain MUSCULOSKELETAL: +chest pain +arm pain Absent: myalgia, arthralgia, joint swelling, back pain, neck pain SKIN: Absent: rash, itching, pallor HEMATOLOGIC/IMMUNOLOGIC: Absent: easy bleeding, easy bruising, lymphadenopathy, frequent infections ENDOCRINE: Absent: unexplained weight gain, unexplained weight loss, heat intolerance, cold intolerance NEUROLOGIC: Absent: headache, focal weakness or paresthesias, dizziness, unsteady gait, seizure, mental status changes, bladder or bowel incontinence PSYCHIATRIC: Absent: anxiety, depression, suicidal or homicidal ideation, hallucinations. PHYSICAL EXAMINATION Vital Signs - 24 hr 06/07/19 06/07/19 06/07/19 12:41 13:25 14:12 Temperature 97.8 F Pulse Rate 42 L Pulse Rate [ 42 L 38 L Apical] Respiratory 24 H 24 H 22 H Rate Blood Pressure 163/110 H Blood Pressure 195/77 H 169/69 [Right Arm] O2 Sat by Pulse 95 96 Oximetry (%) GENERAL: Awake, alert, and fully oriented, in no acute distress. HEAD: Normal with no signs of trauma. EYES: Pupils equal, round and reactive to light, extraocular movements intact, sclera anicteric, conjunctiva clear. No lid lag. EARS, NOSE, THROAT: Ears normal, nares patent, oropharynx clear without exudates. Moist mucous membranes. NECK: Normal range of motion, supple without lymphadenopathy, JVD, or masses. LUNGS:+crackles all the way up bilaterally HEART: Regular rate and rhythm, normal S1 and S2 without murmur, rub or gallop. ABDOMEN: Soft, nontender, not distended, normoactive bowel sounds, no guarding, no rebound, no masses. No hepatomegaly or splenomegaly. MUSCULOSKELETAL: Normal range of motion at all joints. No bony deformities or tenderness. No CVA tenderness. UPPER EXTREMITIES: 2+ pulses, warm, well-perfused. No cyanosis. No clubbing. 1+ bilateral edema up to the knee. LOWER EXTREMITIES: 2+ pulses, warm, well-perfused. No calf tenderness. No peripheral edema. NEUROLOGICAL: Cranial nerves II-XII intact. Normal speech. Normal gait. PSYCHIATRIC: Cooperative. Good eye contact. Appropriate mood and affect. SKIN: Warm, dry, normal turgor, no rashes or lesions noted, normal capillary refill. Laboratory Results - last 24 hr 06/07/19 06/07/19 06/07/19 13:25 13:25 13:25 WBC 8.7 RBC 4.30 Hgb 13.0 Hct 40.1 MCV 93.4 MCH 30.3 MCHC 32.5 RDW 13.1 Plt Count 186 MPV 10.0 Absolute Neuts (auto) 5.9 Neutrophils % 67.9 Lymphocytes % 19.4 Monocytes % 8.4 Eosinophils % 3.6 Basophils % 0.7 PT with INR INR PTT (Actin FS) 30.1 Sodium 139 Potassium 4.1 Chloride 105 Carbon Dioxide 25 Anion Gap 9 BUN 17.0 Creatinine 0.8 Est GFR (CKD-EPI)AfAm 79.02 Est GFR (CKD-EPI)NonAf 68.18 Random Glucose 108 H Calcium 8.8 Magnesium 2.3 Total Bilirubin 1.2 H AST 19 ALT 24 Alkaline Phosphatase 65 Total Protein 7.2 Albumin 4.0 06/07/19 13:25 WBC RBC Hgb Hct MCV MCH MCHC RDW Plt Count MPV Absolute Neuts (auto) Neutrophils % Lymphocytes % Monocytes % Eosinophils % Basophils % PT with INR 15.1 H INR 1.36 H PTT (Actin FS) Sodium Potassium Chloride Carbon Dioxide Anion Gap BUN Creatinine Est GFR (CKD-EPI)AfAm Est GFR (CKD-EPI)NonAf Random Glucose Calcium Magnesium Total Bilirubin AST ALT Alkaline Phosphatase Total Protein Albumin ASSESSMENT/PLAN: Patient is an 83 year-old female with a PMH significant for HTN, HLD, CAD s/p 2vCABG and mitral valve replacement, diastolic heart failure, and asthma/COPD. Admitted for hypoxic respiratory failure secondary to acute on chronic diastolic heart failure. Hypoxic respiratory failure secondary to acute on chronic diastolic heart failure --SpO2 in 80s on arrival to ED --pulmonary congestive changes on CXR, lower extremity edema, increased symptoms of SOB, orthopnea, elevated BNP --start Lasix IVP BID --Echo tomorrow --cardiology consult Hypertension --hypertensive on admission --continue hme nifedipine Hyperlipidemia --continue Lipitor Coronary artery disease --continue statin, nifedipine, isosorbide Asthma COPD --duonebs FEN Fluids: PO intake adequate Electrolytes: replete as indicated Nutrition: low sodium DVT prophylaxis: subq lovenox Physical therapy Dispo: continues to require inpatient care. Full code. Visit type - Emergency Visit Emergency Visit: Yes ED Registration Date: 06/07/19 Care time: The patient presented to the Emergency Department on the above date and was hospitalized for further evaluation of their emergent condition. - New Patient This patient is new to me today: Yes Date on this admission: 06/08/19 - Critical Care Critical Care patient: No Ariela Ly NP: This documentation has been prepared by the Bry olson Maria, SCRIBE, under my direction and personally reviewed by me in its entirety. I confirm that the documentation accurately reflects all work, treatment, procedures, and medical decision making performed by me.
[2019-06-07] MEDS: MONTELUKAST NA 10 MG TABLET PO SCH (21:36)
[2019-06-08] MEDS ORDERED: FUROSEMIDE 40 MG/4 ML INJECTABLE VIAL IVPUSH SCH (06:00)
[2019-06-08 07:50] LABS: BASO % 0.6 % (0-2.0); EOS % 7.2 % (0-4.5); HEMATOCRIT 38.9 % (32.4-45.2); HEMOGLOBIN 12.4 GM/dl (10.7-15.3); LYMPH % 25.7 % (8-40); MCH 29.5 pg (25.7-33.7); MCHC 31.8 g/dl (32.0-36.0); MEAN CELL VOLUME 92.8 fl (80-96); MEAN PLT VOLUME 10.2 fl (7.5-11.1); MONO % 7.3 % (3.8-10.2); NEUT % 59.2 % (42.8-82.8); PLATELET COUNT 193 K/MM3 (134-434); RBC 4.19 M/mm3 (3.60-5.2); WHITE BLOOD COUNT 8.6 K/mm3 (4.0-10.8)
[2019-06-08 08:01] LABS: ALBUMIN 3.7 g/dl (3.4-5.0); BILIRUBIN,TOTAL 1.1 mg/dl (0.2-1); CALCIUM 8.7 mg/dl (8.5-10); CREATININE 0.9 mg/dl (0.55-1.3); MAGNESIUM 2.2 mg/dL (1.8-2.4); POTASSIUM 3.9 mmol/L (3.5-5.1); TOT PROT 7.2 g/dl (6.4-8.2)
--- NOTE | 2019-06-08 09:15 | PN ---
Documentation entered by Amisha Londono SCRIBE, acting as scribe for Ariela Ly NP. Physical Exam: SUBJECTIVE: Patient seen and examined at bedside. Breathing is worse than yesterday. OBJECTIVE: Vital Signs Period Temp Pulse Resp BP Sys/Ziegler Pulse Ox Last 24 Hr 97.8 F-98.3 F 38-79 18-24 135-195/37-110 91-96 GENERAL: The patient is awake, alert, and fully oriented, in no acute distress. LUNGS: +significant diffuse wheezing, +dyspneic with speaking, +accessory muscle use. HEART: Regular rate and rhythm, S1, S2 ABDOMEN: Soft, nontender, nondistended EXTREMITIES: 2+ pulses, warm, well-perfused. 1+ pedal edema. NEUROLOGICAL: Cranial nerves II through XII grossly intact. Normal speech, gait not observed. SKIN: Warm, dry, normal turgor Laboratory Results - last 24 hr 06/07/19 06/07/19 06/07/19 13:25 13:25 13:25 WBC 8.7 RBC 4.30 Hgb 13.0 Hct 40.1 MCV 93.4 MCH 30.3 MCHC 32.5 RDW 13.1 Plt Count 186 MPV 10.0 Absolute Neuts (auto) 5.9 Neutrophils % 67.9 Lymphocytes % 19.4 Monocytes % 8.4 Eosinophils % 3.6 Basophils % 0.7 PT with INR INR PTT (Actin FS) 30.1 Sodium 139 Potassium 4.1 Chloride 105 Carbon Dioxide 25 Anion Gap 9 BUN 17.0 Creatinine 0.8 Est GFR (CKD-EPI)AfAm 79.02 Est GFR (CKD-EPI)NonAf 68.18 Random Glucose 108 H Calcium 8.8 Magnesium 2.3 Total Bilirubin 1.2 H AST 19 ALT 24 Alkaline Phosphatase 65 Troponin I B-Natriuretic Peptide Total Protein 7.2 Albumin 4.0 06/07/19 06/07/19 06/07/19 13:25 13:25 13:25 WBC RBC Hgb Hct MCV MCH MCHC RDW Plt Count MPV Absolute Neuts (auto) Neutrophils % Lymphocytes % Monocytes % Eosinophils % Basophils % PT with INR 15.1 H INR 1.36 H PTT (Actin FS) Sodium Potassium Chloride Carbon Dioxide Anion Gap BUN Creatinine Est GFR (CKD-EPI)AfAm Est GFR (CKD-EPI)NonAf Random Glucose Calcium Magnesium Total Bilirubin AST ALT Alkaline Phosphatase Troponin I < 0.03 B-Natriuretic Peptide 1456.6 H Total Protein Albumin 06/07/19 06/08/19 06/08/19 20:00 01:30 07:05 WBC 8.6 RBC 4.19 Hgb 12.4 Hct 38.9 MCV 92.8 MCH 29.5 MCHC 31.8 L RDW 13.0 Plt Count 193 MPV 10.2 Absolute Neuts (auto) 5.1 Neutrophils % 59.2 Lymphocytes % 25.7 Monocytes % 7.3 Eosinophils % 7.2 H Basophils % 0.6 PT with INR INR PTT (Actin FS) Sodium Potassium Chloride Carbon Dioxide Anion Gap BUN Creatinine Est GFR (CKD-EPI)AfAm Est GFR (CKD-EPI)NonAf Random Glucose Calcium Magnesium Total Bilirubin AST ALT Alkaline Phosphatase Troponin I < 0.03 < 0.02 B-Natriuretic Peptide Total Protein Albumin Active Medications Generic Name Dose Route Start Last Admin Trade Name Freq PRN Reason Stop Dose Admin Atorvastatin Calcium 20 mg 06/08/19 10:00 Lipitor - PO DAILY CHYNA Enoxaparin Sodium 40 mg 06/08/19 10:00 Lovenox - SQ DAILY CHYNA Furosemide 40 mg 06/08/19 06:00 06/08/19 06:39 Lasix Injection - IVPUSH 40 mg BID@0600,1400 CHYNA Administration Isosorbide Mononitrate 30 mg 06/07/19 15:00 06/07/19 17:15 Imdur - PO 30 mg DAILY CHYNA Administration Montelukast Sodium 10 mg 06/07/19 22:00 06/07/19 21:36 Singulair - PO 10 mg HS CHYNA Administration Nifedipine 60 mg 06/07/19 15:00 06/07/19 17:20 Procardia Xl - PO 60 mg DAILY CHYNA Administration ASSESSMENT/PLAN: Patient is an 83 year-old female with a PMH significant for HTN, HLD, CAD s/p 2vCABG and bio mitral valve replacement, diastolic heart failure, and asthma/ COPD. Admitted for hypoxic respiratory failure secondary to acute on chronic diastolic heart failure. Hypoxic respiratory failure secondary to acute on chronic diastolic heart failure --06/08 Echo: mild cLVH, hyperdynamic, EF >70%, impaired LV relaxation; RV normal; mild MR (no comment on bio valve); mild TR; moderate ; --diffuse congestion on CT today, small bilateral pleural effusions; significant symptom improvement after total of Lasix 120mg IVP today; continue 40mg BID --telemetry monitoring --cardiology following Sinus bradycardia --hold home metoprolol Hypertension --improved, continue nifedipine Hyperlipidemia --continue Lipitor Coronary artery disease --continue statin, nifedipine, isosorbide Paroxysmal atrial fibrillation --noted on telemetry with aberrant conduction --[id number] = 6. Start Eliquis 5mg BID --daily ECGs Asthma COPD --duonebs FEN Fluids: PO intake adequate Electrolytes: replete as indicated Nutrition: low sodium DVT prophylaxis: on Eliquis Physical therapy Dispo: continues to require inpatient care. Full code. Visit type - Emergency Visit Emergency Visit: Yes ED Registration Date: 06/07/19 Care time: The patient presented to the Emergency Department on the above date and was hospitalized for further evaluation of their emergent condition. - New Patient This patient is new to me today: No - Critical Care Critical Care patient: No Ariela Ly DIP UNIT OPERATOR: This documentation has been prepared by the Bry olson Maria, SCRIBE, under my direction and personally reviewed by me in its entirety. I confirm that the documentation accurately reflects all work, treatment, procedures, and medical decision making performed by me.
--- NOTE | 2019-06-08 09:26 | EKG ---
Test Reason : Blood Pressure : / mmHG Vent. Rate : 048 BPM Atrial Rate : 048 BPM P-R Int : 156 ms QRS Dur : 092 ms QT Int : 516 ms P-R-T Axes : 049 017 037 degrees QTc Int : 460 ms SINUS BRADYCARDIA WITH MARKED SINUS ARRHYTHMIA POSSIBLE LEFT ATRIAL ENLARGEMENT INCOMPLETE RIGHT BUNDLE BRANCH BLOCK POSSIBLE ANTERIOR INFARCT (CITED ON OR BEFORE 27-NOV-2016) ABNORMAL ECG WHEN COMPARED WITH ECG OF 27-NOV-2016 14:34, INCOMPLETE RIGHT BUNDLE BRANCH BLOCK IS NOW PRESENT Confirmed by Stanley Tolbert MD ([id number]) on 06/08/2019 9:26:48 AM Referred By: JET PA Confirmed By:Stanley Tolbert MD
[2019-06-08] MEDS: NIFEdipine E.R 60 MG TABLET (UD) PO SCH (09:30)
[2019-06-08] MEDS: ISOSORBIDE MONONITRATE 30 MG TAB.SR.24H (FP) PO SCH (09:30)
[2019-06-08] MEDS: ATORVASTATIN CA 20 MG TABLET (FP) PO SCH (09:30)
[2019-06-08] MEDS ORDERED: ENOXAPARIN NA (PORCINE) 40 MG/0.4 ML DISP.SYRIN SQ SCH (10:00)
[2019-06-08] MEDS: ALBUTEROL SO4 2.5/IPRATROPIUM 0.5 INH SOL 3 ML VIAL.NEB. NEB SCH ×3 (10:50→20:22)
[2019-06-08] MEDS ORDERED: FUROSEMIDE 40 MG/4 ML INJECTABLE VIAL IVPUSH STA (11:42)
[2019-06-08] MEDS ORDERED: POTASSIUM CHLORIDE TABS 20 MEQ TABLET.ER (FP) PO ONE (11:45)
--- NOTE | 2019-06-08 13:16 | CON.CARD ---
Consult Consult Specialty:: Cardiology Referred by:: Mckay Ly Reason for Consultation:: CHF - History of Present Illness Chief Complaint: SOB History of Present Illness: 83F with CAD s/p CABG 2015 presents with increased SOB. CXR with increased PVC, BNP 1,456. Cardiac enzymes neg x 3 She reports about one week of increasing DAMICO, PND and orthopnea. Associated w/ some chest tightness with exertion. No palps. Denies dietary indiscretion/ taking her meds. Has not required any further intervention since CABG and "pig valve" in 2014. echo here today no mention of bio valve, but moderate Aortic stenosis, normal LVEF. Follows with Dr. Valdivia. Feeling better after several doses of IV Lasix and as per RN, marked sx improvement this AM almost immediately after receiving IV Lasix. Weight down today to 153 from 160 on admission. - History Source History Provided By: Patient Limitations to Obtaining History: No Limitations - Past Medical History Cardio/Vascular: Yes: Aortic Insufficiency, Aortic Stenosis, HTN, Hyperlipdemia , Mitral Insufficiency, Murmur Pulmonary: Yes: Asthma, COPD Infectious Disease: Yes: Other (History of Lyme disease) - Past Surgical History Past Surgical History: Yes: Appendectomy, - Alcohol/Substance Use Hx Alcohol Use: Yes (SOCIAL) History of Substance Use: reports: None - Smoking History Smoking history: Former smoker Have you smoked in the past 12 months: No Aproximately how many cigarettes per day: 0 If you are a former smoker, when did you quit?: 40 YEARS - Social History ADL: Independent History of Recent Travel: No Home Medications - Allergies Allergies/Adverse Reactions: Allergies Allergy/AdvReac Type Severity Reaction Status Date / Time Penicillins Allergy Mild Rash Verified 06/07/19 12:43 monosodium glutamate Allergy Unknown Verified 06/07/19 12:43 - Home Medications Home Medications: Ambulatory Orders Atorvastatin Ca [Lipitor] 20 mg PO DAILY 11/27/16 Isosorbide Mononitrate [Isosorbide Mononitrate ER] 30 mg PO DAILY 11/27/16 Montelukast Na [Singulair -] 10 mg PO HS 11/27/16 Hydrochlorothiazide [Hctz -] 12.5 mg PO DAILY #30 cap 12/01/16 Nifedipine ER [Procardia XL -] 60 mg PO DAILY #30 tab 12/01/16 Acyclovir [Zovirax -] 200 mg PO QID 06/07/19 Metoprolol Succinate 50 mg PO DAILY 06/07/19 Family Medical History Family History: Unremarkable Review of Systems - Review of Systems Constitutional: reports: No Symptoms Eyes: reports: No Symptoms Cardiovascular: reports: Shortness of Breath Respiratory: reports: SOB on Exertion Neurological: reports: No Symptoms Hematology/Lymphatic: reports: No Symptoms - Risk Factors Known Risk Factors: Yes: Hypertension, Smoking, Other (Known CAD) Vital Signs: Vital Signs Temperature 97.9 F 06/08/19 06:00 Pulse Rate 61 06/08/19 06:30 Respiratory Rate 16 06/08/19 08:15 Blood Pressure 143/54 L 06/08/19 06:30 O2 Sat by Pulse Oximetry (%) 96 06/08/19 08:15 Constitutional: Yes: No Distress Eyes: Yes: Conjunctiva Clear Respiratory: Yes: Other (bibasilar rales.) Gastrointestinal: Yes: Soft, Abdomen, Obese (Nontender) Cardiovascular: Yes: Regular Rate and Rhythm JVD: Yes Carotid Bruit: No Heart Sounds: Yes: S1, S2 Murmur: Yes: Systolic Murmur (2/6 MARII right sternal border.) Edema: No Peripheral Pulses WNL: Yes Neurological: Yes: Alert, Oriented ...Motor Strength: WNL - Other Data Labs, Other Data: CBC, BMP 06/08/19 07:05 06/08/19 07:05 INR, PTT INR 1.36 (0.82-1.09) H 06/07/19 13:25 Troponin, BNP 06/07/19 06/07/19 06/07/19 13:25 13:25 20:00 Troponin I < 0.03 < 0.03 B-Natriuretic Peptide 1456.6 H 06/08/19 01:30 Troponin I < 0.02 B-Natriuretic Peptide Troponin, BNP 06/07/19 06/07/19 06/07/19 13:25 13:25 20:00 Troponin I < 0.03 < 0.03 B-Natriuretic Peptide 1456.6 H 06/08/19 01:30 Troponin I < 0.02 B-Natriuretic Peptide Sinus dinorah, LAE, Inc RBBB Echo: Report Reviewed Imaging - Results Chest X-ray: Image Reviewed Cat Scan: Image Reviewed EKG: Image Reviewed Assessment/Plan IMP: ASHD s/p CABG and bio valve replacement Acute on chronic diastolic CHF Moderate aortic stenosis. Chronic HTN Sinus bradycardia, ectopic atrial rhythm PAF w/ aberrant conduction ([id number] = 6 ) REC: 1. Continue IV Lasix, daily BMP to monitor renal fx, daily weights 2. Echo shows preserved EF, diastolic dysfx and moderate - no mention of prosthetic valve. Will try to obtain old records from Dr. Valdivia. 3. Cont home statin for chronic CAD. 4. Cont home BP meds Procardial XL and Imdur (?used for chronic angina?). 5. Cont telemetry to assess for evidence sinus node dysfx or other higher grade AV block. Hold home Metoprolol for now (marked sinus dinorah into 40s noted on admission). May try to resume at lower dose when euvolemic or if more frequent or sustained episodes of PAF noted. Check TSH. 6. Brief paroxysms of AF noted on tele with aberrant conduction. [id number] = 6. Will start Eliquis 5mg BID.
--- NOTE | 2019-06-08 14:49 | ECHO ---
Version: 1 Name: EMELINA HUTCHINSON Exam: Adult Echocardiogram Study Date: 06/08/2019, 1:59 PM Age: 83 Years MMode/2D Measurements & Calculations IVSd: 1.09 cm LVIDs: 2.8 cm LVIDd: 4.1 cm LVPWd: 1.71 cm LVOT diam: 2.00 cm Ao root diam: 2.36 cm LA dimension: 3.4 cm Doppler Measurements & Calculations MV E max julia: 159.8 cm/sec MV A max julia: 116.7 cm/sec MV E/A: 1.37 MR max P.6 mmHg Ao max P.7 mmHg RICH(I,D): 1.27 cm Ao mean P.7 mmHg LV V1 mean: 78.7 cm/sec Ao V2 max: 310.7 cm/sec LV V1 mean P.9 mmHg PI end-d julia: 106.8 cm/sec TR max julia: 299.2 cm/sec TR max P.9 mmHg Procedure The study was technically limited with all images being suboptimal in quality. Left Ventricle There is mild concentric left ventricular hypertrophy. The left ventricle is hyperdynamic. Ejection Fraction = >70%. The transmitral spectral Doppler flow pattern is suggestive of impaired LV relaxation. Right Ventricle The right ventricle is normal in size and function. Atria Normal left and right atrial size and function. Mitral Valve There is mild mitral annular calcification. There is mild mitral regurgitation. Tricuspid Valve The tricuspid valve is normal in structure and function. There is mild tricuspid regurgitation. Aortic Valve Calcified aortic valve. Moderate valvular aortic stenosis. The calculated aortic valve area using th e continuity equation is 1.27 cm2. Pulmonic Valve The pulmonic valve is not well visualized. Great Vessels The aortic root is normal size. Normal aortic arch, descending and ascending aorta. Pericardium/Pleura There is no pericardial effusion. Summary Statements The study was technically limited with all images being suboptimal in quality. The left ventricle is hyperdynamic. Ejection Fraction = >70%. There is mild concentric left ventricular hypertrophy. The transmitral spectral Doppler flow pattern is suggestive of impaired LV relaxation. The right ventricle is normal in size and function. Normal left and right atrial size and function. There is mild mitral annular calcification. There is mild mitral regurgitation. The tricuspid valve is normal in structure and function. There is mild tricuspid regurgitation. The pulmonic valve is not well visualized. The aortic root is normal size. Normal aortic arch, descending and ascending aorta There is no pericardial effusion. Ramon Pulido 06/08/2019, 2:48 PM Ordering Physician: Ariela Ly Performed By: Delia Salas
[2019-06-08] MEDS: MONTELUKAST NA 10 MG TABLET PO SCH (21:14)
[2019-06-08] MEDS: APIXABAN 5 MG TABLET PO SCH (21:14)
[2019-06-09] MEDS: FUROSEMIDE 40 MG/4 ML INJECTABLE VIAL IVPB SCH ×2 (06:16→14:00)
[2019-06-09] MEDS: ALBUTEROL SO4 2.5/IPRATROPIUM 0.5 INH SOL 3 ML VIAL.NEB. NEB SCH ×3 (08:00→20:22)
[2019-06-09 08:18] LABS: CALCIUM 9.3 mg/dl (8.5-10); CREATININE 0.9 mg/dl (0.55-1.3); MAGNESIUM 2.3 mg/dL (1.8-2.4); POTASSIUM 3.8 mmol/L (3.5-5.1)
[2019-06-09] MEDS: ATORVASTATIN CA 20 MG TABLET (FP) PO SCH (10:00)
[2019-06-09] MEDS: ISOSORBIDE MONONITRATE 30 MG TAB.SR.24H (FP) PO SCH (10:00)
[2019-06-09] MEDS: APIXABAN 5 MG TABLET PO SCH ×2 (10:00→21:15)
[2019-06-09] MEDS: NIFEdipine E.R 60 MG TABLET (UD) PO SCH (10:00)
--- NOTE | 2019-06-09 11:13 | EKG ---
Test Reason : Blood Pressure : / mmHG Vent. Rate : 049 BPM Atrial Rate : 048 BPM P-R Int : 000 ms QRS Dur : 088 ms QT Int : 516 ms P-R-T Axes : 000 -01 050 degrees QTc Int : 466 ms POOR DATA QUALITY, INTERPRETATION MAY BE ADVERSELY AFFECTED JUNCTIONAL RHYTHM SEPTAL INFARCT (CITED ON OR BEFORE 27-NOV-2016) ABNORMAL ECG WHEN COMPARED WITH ECG OF 07-JUN-2019 12:58, JUNCTIONAL RHYTHM HAS REPLACED SINUS RHYTHM ST NO LONGER DEPRESSED IN INFERIOR LEADS Confirmed by NEHEMIAS BURNETTE, SHAUN ([id number]) on 06/09/2019 11:13:12 AM Referred By: VOLODYMYR MARTIN Confirmed By:SHAUN DEL CID MD
--- NOTE | 2019-06-09 17:10 | PN ---
Progress Note (short form) - Note Progress Note: s: less sob, less le edema. no cp palps dizzy Current Medications Generic Name Dose Route Start Last Admin Trade Name Nataly PRN Reason Stop Dose Admin Albuterol/Ipratropium 1 amp 06/08/19 10:45 06/08/19 20:22 Duoneb - NEB 1 amp RTID CHYNA Administration Apixaban 5 mg 06/08/19 22:00 06/09/19 10:00 Eliquis - PO 5 mg BID CHYNA Administration Atorvastatin Calcium 20 mg 06/08/19 10:00 06/09/19 10:00 Lipitor - PO 20 mg DAILY CHYNA Administration Furosemide 40 mg 06/09/19 06:00 06/09/19 06:16 Lasix Injection - IVPB 40 mg BID@0600,1400 CHYNA Administration Isosorbide Mononitrate 30 mg 06/07/19 15:00 06/09/19 10:00 Imdur - PO 30 mg DAILY CHYNA Administration Montelukast Sodium 10 mg 06/07/19 22:00 06/08/19 21:14 Singulair - PO 10 mg HS CHYNA Administration Nifedipine 60 mg 06/07/19 15:00 06/09/19 10:00 Procardia Xl - PO 60 mg DAILY CHYNA Administration Vital Signs Period Temp Pulse Resp BP Sys/Ziegler Pulse Ox Last 24 Hr 97.7 F-98.4 F 42-58 16-20 118-150/41-73 95-97 Constitutional: Yes: No Distress Eyes: Yes: Conjunctiva Clear Respiratory: Yes: Other (bibasilar rales.) Gastrointestinal: Yes: Soft, Abdomen, Obese (Nontender) Cardiovascular: Yes: Regular Rate and Rhythm JVD: Yes Carotid Bruit: No Heart Sounds: Yes: S1, S2 Murmur: Yes: Systolic Murmur (2/6 MARII right sternal border.) Edema: trace le edema bl Peripheral Pulses WNL: Yes Neurological: Yes: Alert, Oriented CBC, BMP 06/08/19 07:05 06/09/19 07:35 Sinus dinorah, LAE, Inc RBBB Echo: Report Reviewed tele: sr, brief nsvt Imaging - Results Chest X-ray: Image Reviewed Cat Scan: Image Reviewed EKG: Image Reviewed Assessment/Plan IMP: ASHD s/p CABG and bio valve replacement Acute on chronic diastolic CHF Moderate aortic stenosis. Chronic HTN Sinus bradycardia, ectopic atrial rhythm PAF w/ aberrant conduction ([id number] = 6 ) REC: 1. Continue IV Lasix, daily BMP to monitor renal fx, daily weights 2. Echo shows preserved EF, diastolic dysfx and moderate - no mention of prosthetic valve. Will try to obtain old records from Dr. Valdivia. 3. Cont home statin for chronic CAD. 4. Cont home BP meds Procardial XL and Imdur (?used for chronic angina?). 5. Cont telemetry to assess for evidence sinus node dysfx or other higher grade AV block. Hold home Metoprolol for now (marked sinus dinorah into 40s noted on admission). May try to resume at lower dose when euvolemic or if more frequent or sustained episodes of PAF noted. 6. Brief paroxysms of AF noted on tele with aberrant conduction. [id number] = 6. Will start Eliquis 5mg BID.
--- NOTE | 2019-06-09 19:15 | PN ---
Documentation entered by Amisha Londono [employer], acting as scribe for Ariela Ly NP. Physical Exam: SUBJECTIVE: Patient seen and examined oob to chair. Feels well, voices no complaints. Ambulating freely around room. OBJECTIVE: Vital Signs Period Temp Pulse Resp BP Sys/Ziegler Pulse Ox Last 24 Hr 97.8 F-98.4 F 42-58 16-20 120-150/40-56 92-96 GENERAL: The patient is awake, alert, and fully oriented, in no acute distress. LUNGS: mild diffuse wheezing, improved; able to speak in complete sentences; no accessory muscle use HEART: Regular rate and rhythm, S1, S2 ABDOMEN: Soft, nontender, nondistended EXTREMITIES: 2+ pulses, warm, well-perfused. 1+ pedal edema. NEUROLOGICAL: Cranial nerves II through XII grossly intact. Normal speech, gait not observed. SKIN: Warm, dry, normal turgor Active Medications Generic Name Dose Route Start Last Admin Trade Name Freq PRN Reason Stop Dose Admin Albuterol/Ipratropium 1 amp 06/08/19 10:45 06/08/19 20:22 Duoneb - NEB 1 amp RTID CHYNA Administration Apixaban 5 mg 06/08/19 22:00 06/08/19 21:14 Eliquis - PO 5 mg BID CHYNA Administration Atorvastatin Calcium 20 mg 06/08/19 10:00 06/08/19 09:30 Lipitor - PO 20 mg DAILY CHYNA Administration Furosemide 40 mg 06/09/19 06:00 06/09/19 06:16 Lasix Injection - IVPB 40 mg BID@0600,1400 CHYNA Administration Isosorbide Mononitrate 30 mg 06/07/19 15:00 06/08/19 09:30 Imdur - PO 30 mg DAILY CHYNA Administration Montelukast Sodium 10 mg 06/07/19 22:00 06/08/19 21:14 Singulair - PO 10 mg HS CHYNA Administration Nifedipine 60 mg 06/07/19 15:00 06/08/19 09:30 Procardia Xl - PO 60 mg DAILY CHYNA Administration ASSESSMENT/PLAN: Patient is an 83 year-old female with a PMH significant for HTN, HLD, CAD s/p 2vCABG and bioprosthetic mitral valve replacement, diastolic heart failure, and asthma/COPD. Admitted for hypoxic respiratory failure secondary to acute on chronic diastolic heart failure. Hypoxic respiratory failure secondary to acute on chronic diastolic heart failure Moderate aortic stenosis --06/08 Echo: mild cLVH, hyperdynamic, EF >70%, impaired LV relaxation; RV normal; mild MR (no comment on bio valve); mild TR; moderate --significant clinical improvement on Lasix; continue BID --telemetry monitoring --cardiology following Sinus bradycardia --hold home metoprolol Paroxysmal atrial fibrillation --noted on telemetry with aberrant conduction --[id number] = 6; continue Eliquis 5mg BID --daily ECGs (afib not captured on ECGs so far) Hypertension --improved, continue nifedipine Hyperlipidemia --continue Lipitor Coronary artery disease --continue statin, nifedipine, isosorbide Asthma COPD --duonebs FEN Fluids: PO intake adequate Electrolytes: replete as indicated Nutrition: low sodium DVT prophylaxis: on Eliquis Physical therapy Dispo: continues to require inpatient care. Full code. Visit type - Emergency Visit Emergency Visit: Yes ED Registration Date: 06/07/19 Care time: The patient presented to the Emergency Department on the above date and was hospitalized for further evaluation of their emergent condition. - New Patient This patient is new to me today: No - Critical Care Critical Care patient: No Ariela Ly NP: This documentation has been prepared by the Bry olson Maria, [employer], under my direction and personally reviewed by me in its entirety. I confirm that the documentation accurately reflects all work, treatment, procedures, and medical decision making performed by me.
[2019-06-09] MEDS: MONTELUKAST NA 10 MG TABLET PO SCH (21:15)
[2019-06-10] MEDS: FUROSEMIDE 40 MG/4 ML INJECTABLE VIAL IVPB SCH ×2 (07:02→14:39)
[2019-06-10] MEDS: ALBUTEROL SO4 2.5/IPRATROPIUM 0.5 INH SOL 3 ML VIAL.NEB. NEB SCH ×3 (07:05→21:33)
[2019-06-10 08:18] LABS: CREATININE 0.8 mg/dl (0.55-1.3); MAGNESIUM 2.3 mg/dL (1.8-2.4); POTASSIUM 4.3 mmol/L (3.5-5.1)
[2019-06-10] MEDS: ATORVASTATIN CA 20 MG TABLET (FP) PO SCH (09:39)
[2019-06-10] MEDS: APIXABAN 5 MG TABLET PO SCH ×2 (09:39→21:34)
[2019-06-10] MEDS: NIFEdipine E.R 60 MG TABLET (UD) PO SCH (09:40)
[2019-06-10] MEDS: ISOSORBIDE MONONITRATE 30 MG TAB.SR.24H (FP) PO SCH (09:40)
--- NOTE | 2019-06-10 13:43 | PN ---
Documentation entered by Amisha Londono SCRIBE, acting as scribe for Ariela Ly NP. Physical Exam: SUBJECTIVE: Patient seen and examined at bedside. Had a coughing episode this morning. OBJECTIVE: Vital Signs Period Temp Pulse Resp BP Sys/Ziegler Pulse Ox Last 24 Hr 97.7 F-98.7 F 54-65 18-20 118-158/46-73 94-97 GENERAL: The patient is awake, alert, and fully oriented, in no acute distress. LUNGS: CTA. No wheezing, improved. HEART: Regular rate and rhythm, S1, S2 ABDOMEN: Soft, nontender, nondistended EXTREMITIES: 2+ pulses, warm, well-perfused. 1+ pedal edema. NEUROLOGICAL: Cranial nerves II through XII grossly intact. Normal speech, gait not observed. SKIN: Warm, dry, normal turgor Laboratory Results - last 24 hr 06/09/19 07:35 Sodium 140 Potassium 3.8 Chloride 104 Carbon Dioxide 26 Anion Gap 10 BUN 19.0 H Creatinine 0.9 Est GFR (CKD-EPI)AfAm 68.53 Est GFR (CKD-EPI)NonAf 59.13 Random Glucose 123 H Calcium 9.3 Magnesium 2.3 TSH 2.10 Active Medications Generic Name Dose Route Start Last Admin Trade Name Freq PRN Reason Stop Dose Admin Albuterol/Ipratropium 1 amp 06/08/19 10:45 06/10/19 07:05 Duoneb - NEB 1 amp RTID CHYNA Administration Apixaban 5 mg 06/08/19 22:00 06/09/19 21:15 Eliquis - PO 5 mg BID CHYNA Administration Atorvastatin Calcium 20 mg 06/08/19 10:00 06/09/19 10:00 Lipitor - PO 20 mg DAILY CHYNA Administration Furosemide 40 mg 06/09/19 06:00 06/10/19 07:02 Lasix Injection - IVPB 40 mg BID@0600,1400 CHYNA Administration Isosorbide Mononitrate 30 mg 06/07/19 15:00 06/09/19 10:00 Imdur - PO 30 mg DAILY CHYNA Administration Montelukast Sodium 10 mg 06/07/19 22:00 06/09/19 21:15 Singulair - PO 10 mg HS CHYNA Administration Nifedipine 60 mg 06/07/19 15:00 06/09/19 10:00 Procardia Xl - PO 60 mg DAILY CHYNA Administration ASSESSMENT/PLAN: Patient is an 83 year-old female with a PMH significant for HTN, HLD, CAD s/p 2vCABG and bioprosthetic mitral valve replacement, diastolic heart failure, and asthma/COPD. Admitted for hypoxic respiratory failure secondary to acute on chronic diastolic heart failure. Hypoxic respiratory failure secondary to acute on chronic diastolic heart failure Moderate aortic stenosis --06/08 Echo: mild cLVH, hyperdynamic, EF >70%, impaired LV relaxation; RV normal; mild MR (no comment on bio valve); mild TR; moderate --significant clinical improvement on Lasix and renal function remains stable ; continue BID --satting 95% on room air at rest, no lower than 89% with ambulation --cardiology following Sinus bradycardia --hold home metoprolol Paroxysmal atrial fibrillation --noted on telemetry with aberrant conduction --[id number] = 6; continue Eliquis 5mg BID --daily ECGs (afib not captured on ECGs so far) Hypertension --improved, continue nifedipine Hyperlipidemia --continue Lipitor Coronary artery disease --continue statin, nifedipine, isosorbide Asthma COPD --duonebs FEN Fluids: PO intake adequate Electrolytes: replete as indicated Nutrition: low sodium DVT prophylaxis: on Eliquis Physical therapy Dispo: continues to require inpatient care. Full code. Visit type - Emergency Visit Emergency Visit: Yes ED Registration Date: 06/07/19 Care time: The patient presented to the Emergency Department on the above date and was hospitalized for further evaluation of their emergent condition. - New Patient This patient is new to me today: No - Critical Care Critical Care patient: No Ariela Ly, [employer]: This documentation has been prepared by the Bry olson Maria, SCRIBE, under my direction and personally reviewed by me in its entirety. I confirm that the documentation accurately reflects all work, treatment, procedures, and medical decision making performed by me.
--- NOTE | 2019-06-10 15:19 | PN ---
Progress Note (short form) - Note Progress Note: s: sob, edema better. no cp palps dizzy Current Medications Albuterol/Ipratropium (Duoneb -) 1 amp NEB RTID [facility] Last Admin: 06/10/19 14:39 Dose: 1 amp Apixaban (Eliquis -) 5 mg PO BID [facility] Last Admin: 06/10/19 09:39 Dose: 5 mg Atorvastatin Calcium (Lipitor -) 20 mg PO DAILY [facility] Last Admin: 06/10/19 09:39 Dose: 20 mg Furosemide (Lasix Injection -) 40 mg IVPB BID@0600,1400 [facility] Last Admin: 06/10/19 14:39 Dose: 40 mg Isosorbide Mononitrate (Imdur -) 30 mg PO DAILY [facility] Last Admin: 06/10/19 09:40 Dose: 30 mg Montelukast Sodium (Singulair -) 10 mg PO HS [facility] Last Admin: 06/09/19 21:15 Dose: 10 mg Nifedipine (Procardia Xl -) 60 mg PO DAILY [facility] Last Admin: 06/10/19 09:40 Dose: 60 mg Vital Signs Period Temp Pulse Resp BP Sys/Ziegler Pulse Ox Last 24 Hr 97.9 F-98.7 F 52-65 18-20 123-158/46-71 89-95 Constitutional: Yes: No Distress Eyes: Yes: Conjunctiva Clear Respiratory: Yes: Other (bibasilar rales.) Gastrointestinal: Yes: Soft, Abdomen, Obese (Nontender) Cardiovascular: Yes: Regular Rate and Rhythm JVD: Yes Carotid Bruit: No Heart Sounds: Yes: S1, S2 Murmur: Yes: Systolic Murmur (2/6 MARII right sternal border.) Edema: trace le edema bl Peripheral Pulses WNL: Yes Neurological: Yes: Alert, Oriented Sinus dinorah, LAE, Inc RBBB Echo: Report Reviewed tele: sr, brief nsvt Imaging - Results Chest X-ray: Image Reviewed Cat Scan: Image Reviewed EKG: Image Reviewed Assessment/Plan IMP: ASHD s/p CABG and bio valve replacement Acute on chronic diastolic CHF Moderate aortic stenosis. Chronic HTN Sinus bradycardia, ectopic atrial rhythm PAF w/ aberrant conduction ([id number] = 6 ) REC: 1. Continue IV Lasix, daily BMP to monitor renal fx, daily weights. Edema, sob improving, likely transition to PO lasix in AM 2. Echo shows preserved EF, diastolic dysfx and moderate - follow up with Dr. Valdivia, hx bioprosthetic AVR 3. Cont home statin for chronic CAD. 4. Cont home BP meds Procardia XL and Imdur 5. Cont telemetry to assess for evidence sinus node dysfx or other higher grade AV block. Hold home Metoprolol for now (marked sinus dinorah into 40s noted on admission). May try to resume at lower dose when euvolemic or if more frequent or sustained episodes of PAF noted. 6. Brief paroxysms of AF noted on tele with aberrant conduction. [id number] = 6. Cont Eliquis 5mg BID. 7. Brief episodes of NSVT - nl EF on echo. Replete lytes for K>4, Mg>2
[2019-06-10] MEDS: MONTELUKAST NA 10 MG TABLET PO SCH (21:34)
[2019-06-11] MEDS: FUROSEMIDE 40 MG/4 ML INJECTABLE VIAL IVPB SCH ×2 (06:14→13:54)
[2019-06-11 06:51] VITALS: BP 157/45; PULSE 55; TEMP 97.9
[2019-06-11] MEDS: ALBUTEROL SO4 2.5/IPRATROPIUM 0.5 INH SOL 3 ML VIAL.NEB. NEB SCH ×2 (08:00→13:54)
[2019-06-11] MEDS: ATORVASTATIN CA 20 MG TABLET (FP) PO SCH (09:46)
[2019-06-11] MEDS: ISOSORBIDE MONONITRATE 30 MG TAB.SR.24H (FP) PO SCH (09:46)
[2019-06-11] MEDS: NIFEdipine E.R 60 MG TABLET (UD) PO SCH (09:46)
[2019-06-11] MEDS: APIXABAN 5 MG TABLET PO SCH (09:46)
--- NOTE | 2019-06-11 10:25 | DS ---
Physical Exam: SUBJECTIVE: Patient seen and examined OBJECTIVE: Vital Signs Period Temp Pulse Resp BP Sys/Ziegler Pulse Ox Last 24 Hr 97.9 F-98.9 F 55-62 16-18 123-157/45-48 95-96 PHYSICAL EXAM GENERAL: The patient is awake, alert, and fully oriented, in no acute distress. LUNGS: CTA. No wheezing, improved. HEART: Regular rate and rhythm, S1, S2 ABDOMEN: Soft, nontender, nondistended EXTREMITIES: 2+ pulses, warm, well-perfused. 1+ pedal edema. NEUROLOGICAL: Cranial nerves II through XII grossly intact. Normal speech, gait not observed. SKIN: Warm, dry, normal turgor LABS CBCD WBC 8.6 K/mm3 (4.0-10.8) 06/08/19 07:05 RBC 4.19 M/mm3 (3.60-5.2) 06/08/19 07:05 Hgb 12.4 GM/dl (10.7-15.3) 06/08/19 07:05 Hct 38.9 % (32.4-45.2) 06/08/19 07:05 MCV 92.8 fl (80-96) 06/08/19 07:05 MCHC 31.8 g/dl (32.0-36.0) L 06/08/19 07:05 RDW 13.0 % (11.6-15.6) 06/08/19 07:05 Plt Count 193 K/MM3 (134-434) 06/08/19 07:05 MPV 10.2 fl (7.5-11.1) 06/08/19 07:05 CMP Sodium 141 mmol/L (136-145) 06/10/19 07:34 Potassium 4.3 mmol/L (3.5-5.1) 06/10/19 07:34 Chloride 105 mmol/L (98-107) 06/10/19 07:34 Carbon Dioxide 27 mmol/L (21-32) 06/10/19 07:34 Anion Gap 9 MMOL/L (8-16) 06/10/19 07:34 BUN 20.0 mg/dl (7-18) H 06/10/19 07:34 Creatinine 0.8 mg/dl (0.55-1.3) 06/10/19 07:34 Calcium 9.0 mg/dl (8.5-10) 06/10/19 07:34 Total Bilirubin 1.1 mg/dl (0.2-1) H 06/08/19 07:05 AST 19 U/L (15-37) 06/08/19 07:05 ALT 23 U/L (13-61) 06/08/19 07:05 Alkaline Phosphatase 65 U/L (45-117) 06/08/19 07:05 Total Protein 7.2 g/dl (6.4-8.2) 06/08/19 07:05 Albumin 3.7 g/dl (3.4-5.0) 06/08/19 07:05 HOSPITAL COURSE: Date of Admission:06/07/19 Date of Discharge: 06/11/19 Pre hospital course Patient is an 83 year-old female with a PMH significant for HTN, HLD, CAD s/p 2vCABG and mitral valve replacement, diastolic heart failure, and asthma/COPD. Patient presented to the ED for evaluation of left-sided chest pain and worsening SOB x 3 days. Patient is a confused historian. She states she developed pain under left breast 3 days ago while lying in bed. She took nitroglycerin but cannot recall if it helped. She has chronic SOB, but it has been much worse over the past few days, can only walk about 5-10 feet before becoming profoundly SOB. She has had to raise the head of her bed and use 2 pillows at night. ER course (1) SpO2 80s (2) Lasix IV 40mg x 1; nitro paste 1 inch; ASA 325mg x 1 Subsequent hospital course Patient is an 83 year-old female with a PMH significant for HTN, HLD, CAD s/p 2vCABG and bioprosthetic mitral valve replacement, diastolic heart failure, and asthma/COPD. Admitted for hypoxic respiratory failure secondary to acute on chronic diastolic heart failure. Hypoxic respiratory failure secondary to acute on chronic diastolic heart failure Moderate aortic stenosis --06/08 Echo: mild cLVH, hyperdynamic, EF >70%, impaired LV relaxation; RV normal; mild MR (no comment on bio valve); mild TR; moderate --significant clinical improvement on Lasix and renal function remained stable Sinus bradycardia --metoprolol was held Paroxysmal atrial fibrillation --noted on telemetry with aberrant conduction --[id number] = 6; continue Eliquis 5mg BID --daily ECGs (afib not captured on ECGs) Hypertension --continued nifedipine Hyperlipidemia --continued Lipitor Coronary artery disease --continued statin, nifedipine, isosorbide Asthma COPD --nu Minutes to complete discharge: 35 Discharge Summary Problems reviewed: Yes Reason For Visit: PULMONARY VENOUS CONGESTION/CHEST PAIN Current Active Problems Chest pain (Acute) DAMICO (dyspnea on exertion) (Acute) Pulmonary vascular congestion (Acute) Condition: Improved - Instructions Diet, Activity, Other Instructions: Two prescriptions have been sent to your pharmacy: 1. Lasix/furosemide: this is a water pill 2. Eliquis: this is a blood thinner Take these medications as instructed. It is very important you follow up with your primary care provider Dr. Nicole Carroll within one week of your discharge. It is also recommended you follow up with Dr. Sudha Ellis, a curriculum developer with the [facility] where your care is based. Her contact information is enclosed in this discharge packet. Referrals: Sudha Ellis MD [Staff Physician] - 1 Week Nicole Carroll [Non Staff, Medical] - 1 Week Disposition: HOME - Home Medications Comprehensive Discharge Medication List: Ambulatory Orders Atorvastatin Ca [Lipitor] 20 mg PO DAILY 11/27/16 Isosorbide Mononitrate [Isosorbide Mononitrate ER] 30 mg PO DAILY 11/27/16 Montelukast Na [Singulair -] 10 mg PO HS 11/27/16 Hydrochlorothiazide [Hctz -] 12.5 mg PO DAILY #30 cap 12/01/16 Nifedipine ER [Procardia XL -] 60 mg PO DAILY #30 tab 12/01/16 Acyclovir [Zovirax -] 200 mg PO QID 06/07/19 Metoprolol Succinate 50 mg PO DAILY 06/07/19 This patient is new to me today: No Emergency Visit: Yes ED Registration Date: 06/07/19 Care time: The patient presented to the Emergency Department on the above date and was hospitalized for further evaluation of their emergent condition. Critical Care patient: No - Discharge Referral Referred to [facility] Med P.C.: No
== END 2019-06-11 14:16 | disposition home or self-care (01) | DRG 291 ==
LOC: FER 12:40 → FM/S 14:24
PROVIDERS: ADMIT Internal Medicine; ATTEND Nurse Practitioner Acute Care
DX: I11.0 Hypertensive heart disease with heart failure (principal); J96.01 Acute respiratory failure with hypoxia; I50.33 Acute on chronic diastolic (congestive) heart failure; I25.10 Atherosclerotic heart disease of native coronary artery without angina pectoris; R00.1 Bradycardia, unspecified; I48.0 Paroxysmal atrial fibrillation; J44.9 Chronic obstructive pulmonary disease, unspecified; J45.909 Unspecified asthma, uncomplicated; E78.5 Hyperlipidemia, unspecified; I35.0 Nonrheumatic aortic (valve) stenosis; Z95.1 Presence of aortocoronary bypass graft
CPT/HCPCS: 36415; 71045-TC-FY; 71046-TC-FY; 71250-TC; 80048; 80053; 83735; 83880; 84443; 84484; 85025; 85610; 85730; 93005; 93306-TC; 94640; 97116-GP; 97161-GP; 99285-25

== ENCOUNTER 2021-05-24 15:55 | Emergency (ER) | payer OTHER, MEDICARE ==
[2021-05-24 16:28] VITALS: BMI 33.2
[2021-05-24 17:26] LABS: INR 1.44 (0.83-1.09)
[2021-05-24 17:30] LABS: ALBUMIN 3.9 g/dl (3.4-5.0); BILIRUBIN,TOTAL 0.5 mg/dl (0.2-1); CALCIUM 9.3 mg/dl (8.5-10); CREATININE 0.8 mg/dl (0.55-1.3); TOT PROT 7.3 g/dl (6.4-8.2)
[2021-05-24 18:40] LABS: BASO % 0.9 % (0-2.0); EOS % 4.9 % (0-4.5); HEMATOCRIT 42.5 % (32.4-45.2); HEMOGLOBIN 14.4 GM/dL (10.7-15.3); LYMPH % 33.5 % (8-40); MCH 31.3 pg (25.7-33.7); MCHC 33.8 g/dl (32.0-36.0); MEAN CELL VOLUME 92.7 fl (80-96); MEAN PLT VOLUME 9.9 fl (7.5-11.1); MONO % 11.3 % (3.8-10.2); NEUT % 49.4 % (42.8-82.8); PLATELET COUNT 201 10^3/uL (134-434); RBC 4.59 M/mm3 (3.60-5.2); RDW 14.2 % (11.6-15.6); WHITE BLOOD COUNT 8.4 K/mm3 (4.0-10.0)
[2021-05-24 19:05] VITALS: BP 158/88; PULSE 79; TEMP 98.8
== END 2021-05-24 19:10 | disposition home or self-care (01) ==
LOC: FER 15:55
DX: R05.9 Cough, unspecified (principal)
CPT/HCPCS: 36415; 71045-TC-FY; 80053; 81003; 82550; 83880; 84484; 85025; 85610; 93005; 99285-25; C9803; U0003; U0005